=== PATIENT | male | born 1945 | race Hispanic/Latino ===

== ENCOUNTER → 2017-12-11 | Outpatient (CLI) | payer OTHER ==
[~2017-12-11] VITALS: Ht 177.8 cm; Wt 74.8 kg
[~2017-12-11] MED LIST: ALEN70TA47 PO; AREDS PO; ASPI-1197 PO; BUDE10.2 IH; BUDE10.22 IH; CALC-190 PO; CETI10TA57 PO; CLOP75TA14 PO; CYAN500 PO; FENO160 PO; FENO43CA5 PO; FINA5TAB41 PO; FISH1CAP63 PO; FLUT16H EN; FLUT16H NS; FLUTICASONE NASAL; FOLI-44 PO; GLIP10TA9 PO; INSLAN SQ; ISOS30TA6 PO; ISOSORBIDE PO; LEVO25TA54 PO; LORA10TA7 PO; MESA0.37 PO; METF-444 PO; METF-446 PO; METOPROLOL PO; MULTIVITAMIN PO; OMEP20CA10 PO; PEG15DRO4 OP; PRAV40TA3 PO; PRAV80TA21 PO; RANO500T2 PO; REGADENOSON 0.4 MG/5 ML PF SYG IVP SCH; TAMS0.4C32 PO; TIOT18CA3 IH; TIOT4MIS2 IH; TRAM50TA4 PO; UMEC1DIS IH; VITA1CAP85 PO; [UNRECOGNIZED DRUG - OTHER] OU; mesalamine PO
== END | disposition home or self-care (01) ==
LOC: SHCH 07:54
PROVIDERS: ATTEND Internal Medicine Cardiovascular Disease
DX: I25.709 Atherosclerosis of coronary artery bypass graft(s), unspecified, with unspecified angina pectoris (principal); J44.9 Chronic obstructive pulmonary disease, unspecified; E11.9 Type 2 diabetes mellitus without complications; Z79.899 Other long term (current) drug therapy
CPT/HCPCS: 78452; 93017; 96374; A9500 ×2; J2785

== ENCOUNTER 2017-12-21 13:02 | Observation (INO) | payer OTHER ==
[~2017-12-21] VITALS: Ht 177.8 cm; Wt 72.3 kg
[~2017-12-21 13:02] MED LIST changes: -AREDS PO; -BUDE10.2 IH; -CETI10TA57 PO; -CYAN500 PO; -FENO160 PO; -FISH1CAP63 PO; -FLUT16H EN; -FOLI-44 PO; -INSLAN SQ; -ISOS30TA6 PO; -MESA0.37 PO; -METF-444 PO; -PEG15DRO4 OP; -PRAV80TA21 PO; -RANO500T2 PO; -REGADENOSON 0.4 MG/5 ML PF SYG IVP SCH; -TIOT4MIS2 IH; -UMEC1DIS IH; -VITA1CAP85 PO; -[UNRECOGNIZED DRUG - OTHER] OU
[2017-12-21 13:56] LABS: BASOPHILS % (AUTO) 0.6 % (0.0-5.0); EOSINOPHILS % (AUTO) 1.1 % (0.0-8.0); HEMATOCRIT 37.3 % (42-54); LYMPHOCYTES % (AUTO) 13.6 % (21.0-51.0); MEAN CORPUSCULAR HEMOGLOBIN 31.9 pg (27.0-33.0); MEAN CORPUSCULAR HGB CONC 33.8 g/dL (32.0-36.0); MEAN CORPUSCULAR VOLUME 94.2 fL (79-99); MONOCYTES % (AUTO) 7.2 % (3.0-13.0); NEUTROPHILS % (AUTO) 77.5 % (40.0-77.0); PLATELET COUNT (AUTO) 165 K/uL (130-400); RED BLOOD CELL COUNT(AUTO) 3.96 MIL/uL (4.50-6.20); RED CELL DISTRIBUTION WIDTH 13.7 % (11.0-15.5); WHITE BLOOD COUNT (AUTO) 6.8 K/uL (4.8-10.8)
[2017-12-21 14:09] LABS: CREATININE 2.3 mg/dL (0.5-1.5); POTASSIUM 3.9 mmol/L (3.5-5.1)
[2017-12-21 14:13] LABS: ALBUMIN 3.8 g/dL (3.5-5.0); BILIRUBIN,TOTAL 0.4 mg/dL (0.2-1.0); TOTAL PROTEIN, SERUM 7.2 g/dL (6.0-8.3)
[2017-12-21 14:14] LABS: INR 1.03 (0.85-1.15); PARTIAL THROMBOPLASTIN TIME 25.7 SEC (26.3-35.5); PROTHROMBIN TIME 10.8 SEC (9.6-11.6)
[2017-12-21] MEDS ORDERED: INSULIN HUMULIN R 100 UNIT/ML 3ML ONE (14:42)
[2017-12-21 16:22] LABS: APPEARANCE,URINE Clear (CLEAR); BILIRUBIN,URINE Negative (NEGATIVE); COLOR,URINE Yellow (YELLOW); GLUCOSE, URINE (UA) 500 mg/dL (NEGATIVE); KETONES,URINE Negative (NEGATIVE); LEUKOCYTE ESTERASE ,URINE Negative (NEGATIVE); NITRATE,URINE Negative (NEGATIVE); OCCULT BLOOD,URINE Negative (NEGATIVE); PH,URINE 5.5 (5.0-8.0); PROTEIN,URINE Negative (NEGATIVE); UROBILINOGEN,URINE 0.2 mg/dL (0.2-1.0)
[2017-12-21] MEDS: PANTOPRAZOLE SODIUM 40 MG TABLET.DR PO SCH (16:26)
[2017-12-21] MEDS: ENOXAPARIN SODIUM 40 MG/0.4 ML SYRINGE SQ SCH (16:27)
[2017-12-21] MEDS ORDERED: LIDOCAINE HCL-MPF 1% 2ML VIAL IJ PRN (16:30)
[2017-12-21] MEDS ORDERED: ONDANSETRON HCL 4 MG/2 ML VIAL IVP PRN (16:30)
[2017-12-21] MEDS ORDERED: MORPHINE SULFATE 2 MG/ML 1ML SYG IVP PRN (16:30)
[2017-12-21] MEDS ORDERED: POTASSIUM CHLORIDE 20MEQ/100ML 100 ML IV PRN (16:30)
[2017-12-21] MEDS: SODIUM CHLORIDE 0.9% 1000ML 1,000 ML IV SCH (16:30)
[2017-12-21] MEDS ORDERED: HYDROCODONE/ACETAMINOPHEN 5/325 MG TAB PO PRN (16:30)
[2017-12-21] MEDS ORDERED: POTASSIUM CHLORIDE 10% ELIXIR 20 MEQ/15 ML UDCUP PO PRN (16:30)
[2017-12-21] MEDS ORDERED: ACETAMINOPHEN 325 MG TAB PO PRN (16:30)
[2017-12-21] MEDS ORDERED: POTASSIUM CHLORIDE 20 MEQ ERTAB PO PRN (16:30)
[2017-12-21 16:37] LABS: BACTERIA,URINE Rare /HPF (None Seen); RBC,URINE 0-1 /HPF (0-1); SQUAMOUS EPITHELIAL CELL,UR Rare /HPF (0-2); WBC,URINE 0-1 /HPF (0-1)
[2017-12-21] MEDS ORDERED: PANTOPRAZOLE SODIUM 40 MG TABLET.DR PO ONE (17:48)
[2017-12-21] MEDS ORDERED: SODIUM CHLORIDE 0.9% 1000ML 1,000 ML IV ONE (17:48)
[2017-12-21] MEDS ORDERED: ENOXAPARIN SODIUM 40 MG/0.4 ML SYRINGE SQ ONE (17:48)
[2017-12-21 19:41] VITALS: BP 123/74
[2017-12-21] MEDS: INSULIN R PO SS1 SQ SCH (20:50)
[2017-12-21] MEDS ORDERED: UMEC1DIS IH (23:04)
[2017-12-21] MEDS ORDERED: AREDS PO (23:04)
[2017-12-21 23:08] VITALS: BP 117/67
[2017-12-21] MEDS ORDERED: FENO160 PO (23:08)
[2017-12-21] MEDS ORDERED: CETI10TA57 PO (23:08)
[2017-12-21] MEDS ORDERED: ISOS30TA6 PO (23:14)
[2017-12-21] MEDS ORDERED: FLUT16H EN (23:14)
[2017-12-21] MEDS ORDERED: INSLAN SQ (23:16)
[2017-12-21] MEDS ORDERED: LEVO25TA54 PO (23:16)
[2017-12-21] MEDS ORDERED: MESA0.37 PO (23:21)
[2017-12-21] MEDS ORDERED: METF-444 PO (23:21)
[2017-12-21] MEDS ORDERED: RANO500T2 PO (23:25)
[2017-12-21] MEDS ORDERED: PRAV80TA21 PO (23:25)
[2017-12-21] MEDS ORDERED: BUDE10.2 IH (23:33)
[2017-12-21] MEDS ORDERED: TIOT4MIS2 IH (23:33)
[2017-12-21] MEDS ORDERED: TRAM50TA4 PO (23:36)
[2017-12-21] MEDS ORDERED: FISH1CAP63 PO (23:41)
[2017-12-21] MEDS ORDERED: FOLI-44 PO (23:41)
[2017-12-21] MEDS ORDERED: VITA1CAP85 PO (23:47)
[2017-12-21] MEDS ORDERED: PEG15DRO4 OP (23:47)
[2017-12-21] MEDS ORDERED: CYAN500 PO (23:47)
[2017-12-21] MEDS ORDERED: [UNRECOGNIZED DRUG - OTHER] OU (23:47)
[2017-12-22 03:19] VITALS: BP 119/72
[2017-12-22] MEDS: SODIUM CHLORIDE 0.9% 1000ML 1,000 ML IV SCH ×2 (05:53→08:31)
[2017-12-22] MEDS: INSULIN R PO SS1 SQ SCH ×3 (05:54→16:54)
[2017-12-22] MEDS: PANTOPRAZOLE SODIUM 40 MG TABLET.DR PO SCH (08:29)
[2017-12-22] MEDS: ENOXAPARIN SODIUM 40 MG/0.4 ML SYRINGE SQ SCH (08:30)
[2017-12-22 12:00] VITALS: BP 150/80
[2017-12-22 16:00] VITALS: BP 145/89
[2017-12-22 19:15] VITALS: BP 132/70
== END 2017-12-22 20:58 | disposition home or self-care (01) ==
LOC: EDH 13:02 → EDHIP 16:05 → 3CH 19:30
PROVIDERS: ADMIT Internal Medicine Critical Care Medicine; ATTEND Internal Medicine Critical Care Medicine
DX: E86.0 Dehydration (principal); I12.9 Hypertensive chronic kidney disease with stage 1 through stage 4 chronic kidney disease, or unspecified chronic kidney disease; N18.9 Chronic kidney disease, unspecified; G89.29 Other chronic pain; M54.9 Dorsalgia, unspecified; E11.22 Type 2 diabetes mellitus with diabetic chronic kidney disease; I25.10 Atherosclerotic heart disease of native coronary artery without angina pectoris; J44.9 Chronic obstructive pulmonary disease, unspecified; Z95.1 Presence of aortocoronary bypass graft
CPT/HCPCS: 36415 ×2; 80048; 80053; 81001; 82948 ×4; 84484; 85025; 85610; 85730; 93005; 96361; 96372 ×2; 96374; 96375; 99285; G0378 ×29; J1650 ×2; J1815 ×4; J2405; J7030 ×3

== ENCOUNTER 2018-08-29 23:33 | Emergency (ER) | payer OTHER ==
[~2018-08-29 23:33] MED LIST changes: -ALEN70TA47 PO; +AREDS PO; +BUDE10.2 IH; -BUDE10.22 IH; +CENTRUM CHEWAB1 EACH PO; +CETI10TA57 PO; +CYAN500 PO; +FENO160 PO; -FENO43CA5 PO; +FISH1CAP63 PO; +FLUT16H EN; -FLUT16H NS; -FLUTICASONE NASAL; -GLIP10TA9 PO; +INSLAN SQ; +ISOS30TA6 PO; -ISOSORBIDE PO; -LORA10TA7 PO; +MESA0.37 PO; +METF-444 PO; -METF-446 PO; -METOPROLOL PO; -MULTIVITAMIN PO; -OMEP20CA10 PO; +PEG15DRO4 OP; -PRAV40TA3 PO; +PRAV80TA21 PO; +RANO500T2 PO; -TIOT18CA3 IH; +TIOT4MIS2 IH; +UMEC1DIS IH; +VITA1CAP85 PO; +[UNRECOGNIZED DRUG - OTHER] OU; -mesalamine PO
[2018-08-30] MEDS ORDERED: SODIUM CHLORIDE 0.9% 500ML 500 ML IV ONE ×2 (00:13→01:19)
[2018-08-30 00:21] LABS: BASOPHILS % (AUTO) 0.3 % (0.0-5.0); EOSINOPHILS % (AUTO) 1.8 % (0.0-8.0); HEMATOCRIT 38.7 % (42-54); LYMPHOCYTES % (AUTO) 7.5 % (21.0-51.0); MEAN CORPUSCULAR HEMOGLOBIN 31.6 pg (27.0-33.0); MEAN CORPUSCULAR VOLUME 95.8 fL (79-99); MONOCYTES % (AUTO) 6.1 % (3.0-13.0); NEUTROPHILS % (AUTO) 84.3 % (40.0-77.0); PLATELET COUNT (AUTO) 161 K/uL (130-400); RED BLOOD CELL COUNT(AUTO) 4.03 MIL/uL (4.50-6.20); RED CELL DISTRIBUTION WIDTH 13.6 % (11.0-15.5)
[2018-08-30 00:23] LABS: APPEARANCE,URINE Clear (CLEAR); BILIRUBIN,URINE Negative (NEGATIVE); COLOR,URINE Yellow (YELLOW); GLUCOSE, URINE (UA) TRACE mg/dL (NEGATIVE); KETONES,URINE Negative (NEGATIVE); LEUKOCYTE ESTERASE ,URINE Negative (NEGATIVE); NITRATE,URINE Negative (NEGATIVE); OCCULT BLOOD,URINE Negative (NEGATIVE); PROTEIN,URINE Trace mg/dL (NEGATIVE)
[2018-08-30 00:34] LABS: BACTERIA,URINE None Seen /HPF (None Seen); POTASSIUM 3.7 mmol/L (3.5-5.1); RBC,URINE None Seen /HPF (0-1); SQUAMOUS EPITHELIAL CELL,UR Rare /HPF (0-2); WBC,URINE None Seen /HPF (0-1); YEAST,URINE BUDDING None Seen /HPF (None Seen)
[2018-08-30 00:38] LABS: BILIRUBIN,TOTAL 0.4 mg/dL (0.2-1.0); MAGNESIUM 2.6 mg/dL (1.80-2.40); TOTAL PROTEIN, SERUM 7.7 g/dL (6.0-8.3)
[2018-08-30 00:43] LABS: PARTIAL THROMBOPLASTIN TIME 27.7 SEC (26.3-35.5); PROTHROMBIN TIME 10.5 SEC (9.6-11.6)
[2018-08-30] MEDS ORDERED: SODIUM CHLORIDE 0.9% 1000ML 1,000 ML IV ONE (02:01)
[2018-08-30] MEDS ORDERED: LOPERAMIDE HCL 2 MG CAP PO ONE (03:09)
[2018-08-30] MEDS ORDERED: DICYCLOMINE HCL 20 MG TAB ONE (03:09)
== END 2018-08-30 03:20 | disposition home or self-care (01) ==
LOC: EDH 23:33
DX: E86.9 Volume depletion, unspecified (principal); R19.7 Diarrhea, unspecified; E11.9 Type 2 diabetes mellitus without complications; J44.9 Chronic obstructive pulmonary disease, unspecified; Z87.891 Personal history of nicotine dependence; Z88.8 Allergy status to other drugs, medicaments and biological substances; Z79.4 Long term (current) use of insulin
CPT/HCPCS: 36415; 80053; 81001; 82550; 83605; 83690; 83735; 85025; 85610; 85730; 87324; 87507; 96360; 96361; 99284; J7030; J7040 ×2

== ENCOUNTER → 2018-10-24 | Outpatient (CLI) | payer OTHER ==
[~2018-10-24] MED LIST changes: -CYAN500 PO; +CYAN500T4 PO; +REGADENOSON 0.4 MG/5 ML PF SYG IVP ONE
== END | disposition home or self-care (01) ==
LOC: SHCH 08:04
PROVIDERS: ATTEND Internal Medicine Cardiovascular Disease
DX: I25.89 Other forms of chronic ischemic heart disease (principal)
CPT/HCPCS: 78452; 93017; 96374; A9500 ×2; J2785

== ENCOUNTER 2018-12-06 14:15 | Inpatient (IN) | payer OTHER ==
[~2018-12-06] VITALS: Ht 180.3 cm; Wt 70.2 kg
[~2018-12-06 14:15] MED LIST changes: -CYAN500T4 PO; +CYAN500T63 PO; -REGADENOSON 0.4 MG/5 ML PF SYG IVP ONE
[2018-12-06 14:49] LABS: BASOPHILS % (AUTO) 0.5 % (0.0-5.0); EOSINOPHILS % (AUTO) 2.3 % (0.0-8.0); HEMATOCRIT 35.7 % (42-54); LYMPHOCYTES % (AUTO) 14.7 % (21.0-51.0); MEAN CORPUSCULAR HEMOGLOBIN 32.6 pg (27.0-33.0); MEAN CORPUSCULAR HGB CONC 33.8 g/dL (32.0-36.0); MEAN CORPUSCULAR VOLUME 96.5 fL (79-99); MONOCYTES % (AUTO) 8.6 % (3.0-13.0); NEUTROPHILS % (AUTO) 73.9 % (40.0-77.0); NUCLEATED RED BLOOD CELLS 0.1 % (0.0-0.19); PLATELET COUNT (AUTO) 163 K/uL (130-400); RED CELL DISTRIBUTION WIDTH 13.7 % (11.0-15.5); WHITE BLOOD COUNT (AUTO) 8.2 K/uL (4.8-10.8)
[2018-12-06 15:00] LABS: CREATININE 2.6 mg/dL (0.5-1.5)
[2018-12-06 15:05] LABS: ALBUMIN 3.8 g/dL (3.5-5.0); BILIRUBIN,TOTAL 0.3 mg/dL (0.2-1.0); TOTAL PROTEIN, SERUM 7.5 g/dL (6.0-8.3)
[2018-12-06] MEDS ORDERED: NITROGLYCERIN 1GM/1 INCH PACKET TD ONE (15:25)
[2018-12-06] MEDS ORDERED: SODIUM CHLORIDE 0.9% 1000ML 1,000 ML IV ONE (18:30)
[2018-12-06] MEDS ORDERED: METOPROLOL TARTRATE 25 MG TAB ONE (18:31)
[2018-12-06] MEDS ORDERED: HEPARIN SODIUM 5000UNIT/ML 1ML VIAL ONE (18:31)
[2018-12-06] MEDS ORDERED: ASPIRIN 81MG TAB.CHEW ONE (18:32)
[2018-12-06] MEDS ORDERED: ATORVASTATIN CALCIUM 40 MG TABLET ONE (20:43)
[2018-12-06 20:50] LABS: CREATINE KINASE, TOTAL 35 U/L (21-232); MYOGLOBIN 56 ng/mL (10-92); TROPONIN I < 0.04 ng/mL (0.00-0.06)
[2018-12-06 22:15] VITALS: BP 132/79
--- NOTE | 2018-12-06 22:54 | NUR ---
ADMIT PT ADMITTED TO ROOM 327, AAOX3. DENIES ANY PAINS AT THIS TIME. NOTED TO HAVE GBW. CLAIMS OF HAVING EPISODES SOB EVEN AT REST IN BED. ADMISSION CARE DONE. ADMISSION DATA BASE COMPLETED. PLACED PT ON O2 AT 2LPM VIA NC. TELE MONITOR APPLIED WITH RHYTHM AR REGULAR SINUS AND HR=70'S. ORIENTED TO ROOM AND UNIT. IN FOR MORE CARE AND MANAGEMENT. CALL LIGHT WITHIN REACH. Addendum: 12/06/18 at 2336 by MRAU NORWOOD RN RN Amended: Links added.
[2018-12-06] MEDS ORDERED: GLUCAGON 1MG KIT 1 MG ML IM PRN (23:45)
[2018-12-06] MEDS: SODIUM CHLORIDE 0.9% 1000ML 1,000 ML IV SCH (23:45)
[2018-12-06] MEDS ORDERED: DEXTROSE 50%-WATER 50 ML DISP.SYRIN IV PRN (23:45)
[2018-12-06] MEDS ORDERED: ONDANSETRON HCL 4 MG/2 ML VIAL IVP PRN (23:45)
[2018-12-06] MEDS ORDERED: NITROGLYCERIN 0.4 MG SL TAB SL PRN (23:45)
[2018-12-06] MEDS ORDERED: ACETAMINOPHEN 325 MG TAB PO PRN (23:45)
[2018-12-07] VITALS (7 sets, daily range): BP systolic 119–139; BP diastolic 68–79
[2018-12-07] MEDS ORDERED: FOLI1TAB85 PO (00:11)
[2018-12-07] MEDS ORDERED: MUPI22OI2 TP (00:11)
[2018-12-07] MEDS ORDERED: ALBU8.5H8 IH (00:11)
[2018-12-07] MEDS ORDERED: ALBU90AE IH (00:11)
[2018-12-07] MEDS ORDERED: FISH1CAP27 PO (00:11)
[2018-12-07] MEDS ORDERED: GLIP-162 PO (00:11)
[2018-12-07] MEDS ORDERED: ACET-66 PO (00:11)
[2018-12-07] MEDS ORDERED: DEXT1DRO12 OP (00:16)
--- NOTE | 2018-12-07 02:00 | NUR ---
ROUNDS PT RESTING WELL, NO DISTRESS NOTED. KEPT COMFORTABLE IN BED. CALL LIGHT WITHIN REACH. WILL MONITOR PT. SPOUSE AT BEDSIDE.
[2018-12-07 02:32] LABS: HEMATOCRIT 34.1 % (42-54); MEAN CORPUSCULAR HEMOGLOBIN 32.3 pg (27.0-33.0); MEAN CORPUSCULAR HGB CONC 33.5 g/dL (32.0-36.0); MEAN CORPUSCULAR VOLUME 96.4 fL (79-99); PLATELET COUNT (AUTO) 156 K/uL (130-400); RED BLOOD CELL COUNT(AUTO) 3.54 MIL/uL (4.50-6.20); RED CELL DISTRIBUTION WIDTH 13.8 % (11.0-15.5)
[2018-12-07 02:52] LABS: CARBON DIOXIDE 23 mmol/L (21-32); CHLORIDE 108 mmol/L (101-111); CREATINE KINASE, TOTAL 36 U/L (21-232); CREATININE 2.4 mg/dL (0.5-1.5); GLOMERULAR FILTR. RATE CALC 28 mL/min (>60); GLUCOSE,RANDOM 134 mg/dL (70-105); MYOGLOBIN 54 ng/mL (10-92); POTASSIUM 4.4 mmol/L (3.5-5.1); SODIUM SERUM 144 mmol/L (136-145); TROPONIN I < 0.04 ng/mL (0.00-0.06); UREA NITROGEN, BLOOD 41 mg/dL (7-18)
--- NOTE | 2018-12-07 05:30 | NUR ---
ROUNDS PT RESTING WELL, FAIRLY ASLEEP. NO DISTRESS NOTED. KEPT RESTED AND COMFORTABLE. CALL LIGHT WITHIN REACH. FOR MORE CARE.
[2018-12-07] MEDS: INSULIN HUMULIN R 100 UNIT/ML 3ML SQ SCH ×4 (05:44→21:44)
[2018-12-07] MEDS ORDERED: METOPROLOL TARTRATE 25 MG TAB PO SCH (09:00)
[2018-12-07] MEDS ORDERED: HEPARIN SODIUM 5000UNIT/ML 1ML VIAL SQ SCH (09:00)
[2018-12-07] MEDS ORDERED: ASPIRIN 81MG TAB.CHEW PO SCH (09:00)
[2018-12-07] MEDS: SODIUM CHLORIDE 0.9% 1000ML 1,000 ML IV SCH (18:15)
[2018-12-07] MEDS ORDERED: ATORVASTATIN CALCIUM 40 MG TABLET PO SCH (21:00)
[2018-12-07] MEDS: RANOLAZINE 500 MG TAB.SR.12H PO SCH (21:37)
[2018-12-07] MEDS: METOPROLOL TARTRATE 50 MG TAB PO SCH (21:37)
[2018-12-07] MEDS: ATORVASTATIN CALCIUM 20 MG TABLET PO SCH (21:37)
[2018-12-08 03:44] VITALS: BP 118/66
[2018-12-08] MEDS: INSULIN HUMULIN R 100 UNIT/ML 3ML SQ SCH ×4 (05:57→20:29)
[2018-12-08 08:00] VITALS: BP 132/77
[2018-12-08] MEDS ORDERED: ENOXAPARIN SODIUM 30 MG/0.3 ML SQ SCH (08:30)
[2018-12-08] MEDS: RANOLAZINE 500 MG TAB.SR.12H PO SCH ×2 (08:34→20:26)
[2018-12-08] MEDS: ASPIRIN 81MG TAB.CHEW PO SCH (08:35)
[2018-12-08] MEDS: ISOSORBIDE MONO 30MG TAB SR PO SCH (08:35)
[2018-12-08] MEDS: CLOPIDOGREL BISULFATE 75 MG TAB PO SCH (08:35)
[2018-12-08] MEDS: METOPROLOL TARTRATE 50 MG TAB PO SCH ×2 (08:35→20:26)
[2018-12-08] MEDS: GLIPIZIDE XL 5MG TAB PO SCH (08:36)
[2018-12-08] MEDS: FUROSEMIDE 20 MG TABLET PO SCH ×2 (08:46→17:50)
[2018-12-08] MEDS: 1/2 NORMAL SALINE 1,000 ML IV SCH (08:47)
[2018-12-08 12:00] VITALS: BP 110/68
[2018-12-08 16:00] VITALS: BP 127/71
--- NOTE | 2018-12-08 18:00 | NUR ---
INITIAL: Met with pt and spouse this afternoon to discuss dcp. Pt mentions that he lives w spouse and dtr. Prior to admission was independent w ambulation and ADLs. He does not own any DME. he was receiving meals on wheels. Per pt he feels safe and comfortable to return @ [facility]. to continue to follow and wait for md recommendations. Addendum: 12/08/18 at 1802 by ABNER JACKSON Amended: Links added.
[2018-12-08 19:49] VITALS: BP 143/78
[2018-12-08] MEDS: ATORVASTATIN CALCIUM 20 MG TABLET PO SCH (20:26)
--- NOTE | 2018-12-08 20:30 | NUR ---
MEDS SHIFT ASSESSMENT DONE, PLEASE REFER TO CHART. DUE MEDS ADMINISTERED,TOLERATED WELL. KEPT RESTED AND COMFORTABLE IN BED WITH HOB ELEVATED. CALL LIGHT WITHIN REACH. WILL MONITOR PT. Addendum: 12/08/18 at 2218 by MARU NORWOOD RN RN Amended: Links added.
[2018-12-08 23:45] VITALS: BP 118/67
[2018-12-09] VITALS (13 sets, daily range): BP systolic 100–149; BP diastolic 66–97
--- NOTE | 2018-12-09 02:00 | NUR ---
ROUNDS PT FAIRLY ASLEEP WITH RESPIRATIONS EVEN AND UNLABORED. NO NOTED DISTRESS. KEPT UNDISTURBED FOR NOW. WILL MONITOR PT. CALL LIGHT WITHIN REACH. SPOUSE AT BEDSIDE.
[2018-12-09] MEDS: 1/2 NORMAL SALINE 1,000 ML IV SCH (04:04)
--- NOTE | 2018-12-09 05:55 | NUR ---
ROUNDS PT ALREADY AWAKE. NO DISTRESS NOTED. NO CONCERNS VERBALIZED. EXHAUST MACHINE OPERATOR IN TO DRAW BLOOD. KEPT RESTED AND COMFORTABLE. FOR MORE CARE.
[2018-12-09] MEDS: INSULIN HUMULIN R 100 UNIT/ML 3ML SQ SCH ×4 (06:16→22:59)
[2018-12-09 06:28] LABS: HEMATOCRIT 37.3 % (42-54); MEAN CORPUSCULAR HEMOGLOBIN 32.1 pg (27.0-33.0); MEAN CORPUSCULAR HGB CONC 33.4 g/dL (32.0-36.0); MEAN CORPUSCULAR VOLUME 96.1 fL (79-99); PLATELET COUNT (AUTO) 184 K/uL (130-400); RED BLOOD CELL COUNT(AUTO) 3.88 MIL/uL (4.50-6.20); RED CELL DISTRIBUTION WIDTH 13.9 % (11.0-15.5); WHITE BLOOD COUNT (AUTO) 9.3 K/uL (4.8-10.8)
[2018-12-09 06:57] LABS: CREATININE 2.2 mg/dL (0.5-1.5)
[2018-12-09 07:38] LABS: B-TYPE NATRIURETIC PEPTIDE 113 pg/mL (0-100)
[2018-12-09] MEDS: GLIPIZIDE XL 5MG TAB PO SCH (08:00)
--- NOTE | 2018-12-09 08:10 | NUR ---
DR. FRANCO NOTIFIED RE; PLAN FOR TODAY STATES PT SHOULD HAVE HAD BEEN NPO, PLEASE SCHEDULE CORONARY ANGIO FOR TODAY. PT PREP. REMEDY DEVELOPER AWARE.
[2018-12-09] MEDS: ASPIRIN 81MG TAB.CHEW PO SCH (09:14)
[2018-12-09] MEDS: ISOSORBIDE MONO 30MG TAB SR PO SCH (09:16)
[2018-12-09] MEDS: METOPROLOL TARTRATE 50 MG TAB PO SCH ×2 (09:16→20:09)
[2018-12-09] MEDS: RANOLAZINE 500 MG TAB.SR.12H PO SCH ×2 (09:16→20:09)
[2018-12-09] MEDS: FUROSEMIDE 20 MG TABLET PO SCH ×2 (09:17→16:37)
[2018-12-09] MEDS: SODIUM CHLORIDE 0.9% 500ML 500 ML IV SCH ×2 (09:18→16:37)
[2018-12-09] MEDS: CLOPIDOGREL BISULFATE 75 MG TAB PO SCH (09:27)
--- NOTE | 2018-12-09 09:28 | NUR ---
Cathlab Okay to give plavix and all other meds except diabetes meds as per [facility]/cathlab protocol, Cathlab nurse.
[2018-12-09 10:06] LABS: INR 0.97 (0.85-1.15); PARTIAL THROMBOPLASTIN TIME 24.6 SEC (26.3-35.5); PROTHROMBIN TIME 10.2 SEC (9.6-11.6)
--- NOTE | 2018-12-09 12:30 | NUR ---
REPORT GIVEN TO PCU NURSE BENOIT.
[2018-12-09] MEDS ORDERED: IOHEXOL-350 75 ML VIAL IV ONE (13:05)
[2018-12-09] MEDS ORDERED: IOHEXOL 350 MG/ML 100ML INFUS..BTL IV ONE ×2 (13:05→13:42)
[2018-12-09] MEDS ORDERED: IOHEXOL-350 50ML VIAL IV ONE (13:05)
[2018-12-09] MEDS ORDERED: HEPARIN SODIUM 1000UNIT/ML 10ML VIAL ONE (13:05)
[2018-12-09] MEDS ORDERED: LIDOCAINE HCL 2% 20ML ONE (13:05)
[2018-12-09] MEDS ORDERED: NITROGLYCERIN 50 MG/D5% WATER 1 BOT IV PRN (14:45)
[2018-12-09] MEDS ORDERED: TEMAZEPAM 30 MG CAP PO PRN (14:45)
--- NOTE | 2018-12-09 15:00 | NUR ---
ARRIVAL TO FLOOR ROOM 201, S/P [facility]. AAOX4 DENIES CP DENIES SOB DENIES NV NO COMPLAINTS RESTING IN BED. RIGHT GROIN DRESSING CLEAN DRY AND INTACT. NO OOZING NO HEMATOMA NOTED. BEDREST IN PROGRESS. FAMILY IS AT BEDSIDE, CALL LIGHT WITHIN REACH, TELE PACK APPLIED TO PATIENT. HR VIA TELE SB 58.
[2018-12-09] MEDS ORDERED: ACETAMINOPHEN 325 MG TAB PO PRN (16:30)
--- NOTE | 2018-12-09 17:00 | NUR ---
RIGHT GROIN DRESSING GAUZE IS SATURATED WITH BLOOD RIGHT GROIN IS HOWEVER SOFT, NO BRUISING NOTED NO HEMATOMA FELT SURROUNDING. NOTIFIED DR WARREN. ORDERED TO CHANGE DRESSING AND HOLD PRESSURE [id number]. THIS WAS CARRIED OUT. HEMOSTASIS ACHIEVED. BEDREST REMAINS IN PROGRESS.
--- NOTE | 2018-12-09 19:30 | NUR ---
R groin assessment R groin soft, non tender. No hematoma. Dressing bloody. Pedal pulses palpable.
--- NOTE | 2018-12-09 20:00 | NUR ---
Dressing changed R groin oozing, dressing saturated. D-stat placed.Pedal pulses palpable
[2018-12-09] MEDS: ATORVASTATIN CALCIUM 20 MG TABLET PO SCH (20:09)
--- NOTE | 2018-12-09 21:00 | NUR ---
Dressing changed R groin checked. Dressing saturated. Oozing from site. Changed dressing. Pressure dressing in place. Pedal pulses palpable. Patient c/o of back pain. Informed patient tylenol due at 10 pm.
[2018-12-09] MEDS ORDERED: ACETYLCYSTEINE 10% 100MG/ML 4ML VIAL PO SCH (21:30)
--- NOTE | 2018-12-09 21:30 | NUR ---
Dr lundberg orders Per Lundberg order PO mucmyst now and daily
--- NOTE | 2018-12-09 22:30 | NUR ---
Patient received Tylenol for back pain R groin dressing cdi
--- NOTE | 2018-12-09 22:45 | NUR ---
Patient reports nausea and vomiting Patient's spouse comes out to nursing station to notify the ENGRAVER [employer]ICAL [employer]AMES patient is throwing up. Spouse asks for a emesis bag. [employer]RA[employer] hands patient family emesis bag. ENGRA[employer] notifies me the patient is vomiting. Once I am done assisting another patient with his needs I quickly go to med room and pull antiemetic. I walk into patient's room and ask the patient how he is feeling. He states he is nauseous. natasha says ," He was throwing up and nobody was here to help me. I had to do it all by myself." " didn't know what to do." I asked the patient what they did at home when they felt nauseous and began to vomit. I told them it was perfectly fine for him to vomit in the emesis bag. I explained to the patient and family member that it may be a side effect to anaesthesia from procedure early on in day. To give them peace of mind, I told them its nothing to be alarmed about. It can happen and if it does he has the emesis bag at bedside. I also let them know I was administering Zofran for the nausea and to let me know if he still felt nauseas after the Zofran to left me know. Patient and family membered nodded and verbally said okay. R diana checked. No oozing. Patient and
[2018-12-09] MEDS: ONDANSETRON HCL 4 MG/2 ML VIAL IVP PRN ×2 (22:56→23:01)
--- NOTE | 2018-12-09 23:00 | NUR ---
Patient standing outside of patient's room red and flushed wiping a wet towel on her face. I asked patient if she was okay since she was red and flushed. Patient stated " I don't like the way we were treated." Patient also stated, " I don't feel good myself and we aren't being treated right." "I am waiting for patient advocate to show up." I told the if she didn't feel well, I needed her to be seen in ED because I wouldn't be able to take care of both of her and her spouse. said, " I am not leaving, don't try to kick me out." She then walked into the room 201 where daughter and son in law were waiting. I followed behind into 201 and explained to her and family if she felt sick it's best she gets seen in Emergency Room because I didn't want something to happen to her while at bedside. stated, "Why don't you just take care of the patient." "He should be your concern not me." I let everyone in room know that both family and patient are my concern. Patient stated, "I you need to give it to us in writing that she () cannot be in here and that she needs to leave." I let everyone in room know she should be seen in ER if she felt sick if not then there is absolutely nothing wrong with her remaining at bedside if she didn't feel ill. Son in law then shouted at me while being a few inches away from my face, "She isn't sick, she looks like she is because of you!" " You are mistreating them!" "Stop trying to force her to leave." "You need to leave this room because you are stressing both of them out." I again attempted to educate everyone in the room about not only patient safety but 's safety as well. "Son in law raised his voice again," Stop trying to defend yourself and get out of the room." I wrote down patient advocate name and number on board. They called household appliance installer. community health nurse supervisor Sandee spoke to family. Nurse and aid were switched. From the 1929 to 2299, I was in patient's room checking on groin, Changed out dressing 3x. Addressed pain issue, addressed pump alarm 4x. Educated on bending of arm causing alarm. Gave patient heating packs for sore back. Adjusted pillow 2x for back relief. Administered antiemetic once notified of vomiting. Addressed every issue possible.
[2018-12-10] MEDS: 1/2 NORMAL SALINE 1,000 ML IV SCH (00:45)
--- NOTE | 2018-12-10 01:00 | NUR ---
RIGHT GROIN ASSESSMENT-SOFT AND NON TENDER. PRESSURE DRESSING IN PLACE. PT WAS NOTED TO HAVE INCREASED BLEEDING TO SITE. CURRENTLY PT HAS NO DRAINAGE TO SITE, NO PAIN STATED. WILL CONTINUE TO MONITOR.
[2018-12-10 03:51] VITALS: BP 131/77
[2018-12-10 03:55] LABS: HEMATOCRIT 37.5 % (42-54); MEAN CORPUSCULAR HEMOGLOBIN 32.2 pg (27.0-33.0); MEAN CORPUSCULAR HGB CONC 33.7 g/dL (32.0-36.0); MEAN CORPUSCULAR VOLUME 95.6 fL (79-99); PLATELET COUNT (AUTO) 190 K/uL (130-400); RED BLOOD CELL COUNT(AUTO) 3.92 MIL/uL (4.50-6.20); RED CELL DISTRIBUTION WIDTH 13.8 % (11.0-15.5); WHITE BLOOD COUNT (AUTO) 14.9 K/uL (4.8-10.8)
[2018-12-10] MEDS: SODIUM CHLORIDE 0.9% 500ML 500 ML IV SCH (04:08)
[2018-12-10 04:16] LABS: CREATININE 2.3 mg/dL (0.5-1.5)
[2018-12-10] MEDS: INSULIN HUMULIN R 100 UNIT/ML 3ML SQ SCH ×2 (05:43→11:34)
--- NOTE | 2018-12-10 07:15 | NUR ---
ASSESSMENT PT IS AAOX4 RESTING IN BED. DENIES CP DENIES SOB DENIES NV. RIGHT GROIN DRESSING IS CLEAN DRY AND INTACT. FAMILY IS AT BEDSIDE, CALL LIGHT WITHIN REACH.
[2018-12-10 07:30] VITALS: BP 146/77
[2018-12-10] MEDS: GLIPIZIDE XL 5MG TAB PO SCH (07:46)
[2018-12-10] MEDS: CLOPIDOGREL BISULFATE 75 MG TAB PO SCH (07:47)
[2018-12-10] MEDS: ISOSORBIDE MONO 30MG TAB SR PO SCH (07:47)
[2018-12-10] MEDS: RANOLAZINE 500 MG TAB.SR.12H PO SCH (07:47)
[2018-12-10] MEDS: METOPROLOL TARTRATE 50 MG TAB PO SCH (07:47)
[2018-12-10] MEDS: ASPIRIN 81MG TAB.CHEW PO SCH (07:47)
[2018-12-10] MEDS: FUROSEMIDE 20 MG TABLET PO SCH (07:48)
[2018-12-10] MEDS ORDERED: ASPIRIN 81MG TAB.CHEW PO SCH (09:00)
[2018-12-10] MEDS ORDERED: ACETYLCYSTEINE 10% 100MG/ML 4ML VIAL PO SCH (09:00)
[2018-12-10] MEDS ORDERED: PANTOPRAZOLE SODIUM 40 MG TABLET.DR PO SCH (09:00)
[2018-12-10] MEDS ORDERED: CLOPIDOGREL BISULFATE 75 MG TAB PO SCH (09:00)
--- NOTE | 2018-12-10 10:00 | NUR ---
ROUNDS DR MARTINES / NIURKA GRANADOS ROUNDED. OK TO DC HOME. PENDING DR GAONA TO ROUND
[2018-12-10 10:57] VITALS: BP 124/76
--- NOTE | 2018-12-10 11:00 | NUR ---
DR GAONA ROUNDED OK TO DC HOME, FOLLOW UP OUTPT IN CLINIC
--- NOTE | 2018-12-10 12:00 | NUR ---
AMBULATING IN HALLS DENIES PAIN NO COMPLAINTS. RIGHT GROIN REMAINS CLEAN DRY AND INTACT.
--- NOTE | 2018-12-10 13:00 | NUR ---
DC HOME PT AND SPOUSE VERBALIZE DC INSTRUCTIONS UNDERSTANDING, AGREE TO FOLLOW UP WITH MDS ORDERED AND HAVE BMP DRAWN 9-12 AT PRIMARY MD OFFICE. ALL QUESTIONS ANSWERED. PIV REMOVED CATH TIP INTACT, TELE PACK REMOVED. DOWN VIA WC WITH FAMILY AND NURSE AIDE.
== END 2018-12-10 13:27 | disposition home or self-care (01) | DRG 251 ==
LOC: EDH 14:15 → EDHIP 16:22 → OBSVTOIN 16:22 → 3DH 21:37 → 2AH 12-09 15:13
PROVIDERS: ADMIT Internal Medicine Critical Care Medicine; ATTEND Internal Medicine Critical Care Medicine
PROC: 4A023N7 Measurement of Cardiac Sampling and Pressure, Left Heart, Percutaneous Approach (ICD-10-PCS; principal; 2018-12-09)
PROC: 02703ZZ Dilation of Coronary Artery, One Artery, Percutaneous Approach (ICD-10-PCS; 2018-12-09)
PROC: B2131ZZ Fluoroscopy of Multiple Coronary Artery Bypass Grafts using Low Osmolar Contrast (ICD-10-PCS; 2018-12-09)
PROC: B2181ZZ Fluoroscopy of Left Internal Mammary Bypass Graft using Low Osmolar Contrast (ICD-10-PCS; 2018-12-09)
PROC: B2111ZZ Fluoroscopy of Multiple Coronary Arteries using Low Osmolar Contrast (ICD-10-PCS; 2018-12-09)
DX: T82.855A Stenosis of coronary artery stent, initial encounter (principal); I25.110 Atherosclerotic heart disease of native coronary artery with unstable angina pectoris; N18.4 Chronic kidney disease, stage 4 (severe); Y83.8 Other surgical procedures as the cause of abnormal reaction of the patient, or of later complication, without mention of misadventure at the time of the procedure; Y92.89 Other specified places as the place of occurrence of the external cause; E11.22 Type 2 diabetes mellitus with diabetic chronic kidney disease; I12.9 Hypertensive chronic kidney disease with stage 1 through stage 4 chronic kidney disease, or unspecified chronic kidney disease; E03.9 Hypothyroidism, unspecified; E11.51 Type 2 diabetes mellitus with diabetic peripheral angiopathy without gangrene; E78.5 Hyperlipidemia, unspecified; I25.2 Old myocardial infarction; I25.5 Ischemic cardiomyopathy; J44.9 Chronic obstructive pulmonary disease, unspecified; N40.0 Benign prostatic hyperplasia without lower urinary tract symptoms; Z79.02 Long term (current) use of antithrombotics/antiplatelets; Z79.4 Long term (current) use of insulin; Z79.51 Long term (current) use of inhaled steroids; Z79.82 Long term (current) use of aspirin; Z79.899 Other long term (current) drug therapy; Z87.891 Personal history of nicotine dependence; Z95.1 Presence of aortocoronary bypass graft; Z88.8 Allergy status to other drugs, medicaments and biological substances
CPT/HCPCS: 36415; 71046; 80048; 80053; 80061; 82550; 82948; 83874; 83880; 84484; 85025; 85027; 85610; 85730; 92920; 93005; 93306; 93455; C1725; C1760; C1769; C1894; G0378; J1644; J1650; J1815; J2405; J3490; J7030; J7040; J7608; Q9967

== ENCOUNTER 2019-12-27 18:56 | Observation (INO) | payer OTHER ==
[~2019-12-27] VITALS: Ht 177.8 cm; Wt 73.9 kg
[~2019-12-27 18:56] MED LIST changes: +ACET-66 PO; +ALBU8.5H8 IH; +ALBU90AE IH; -CALC-190 PO; -CENTRUM CHEWAB1 EACH PO; -CETI10TA57 PO; -CYAN500T63 PO; +DEXT1DRO12 OP; +FISH1CAP27 PO; -FISH1CAP63 PO; +FOLI1TAB85 PO; +GLIP-162 PO; -METF-444 PO; +MUPI22OI2 TP; -PEG15DRO4 OP; -TRAM50TA4 PO; -UMEC1DIS IH; -VITA1CAP85 PO; -[UNRECOGNIZED DRUG - OTHER] OU
[2019-12-27] MEDS ORDERED: ASPIRIN 325 MG TABLET ONE (19:07)
[2019-12-27 19:13] LABS: BASOPHILS % (AUTO) 0.4 % (0.0-5.0); EOSINOPHILS % (AUTO) 1.5 % (0.0-8.0); HEMATOCRIT 34.7 % (42-54); LYMPHOCYTES % (AUTO) 9.9 % (21.0-51.0); MEAN CORPUSCULAR HEMOGLOBIN 32.2 pg (27.0-33.0); MEAN CORPUSCULAR HGB CONC 33.1 g/dL (32.0-36.0); MEAN CORPUSCULAR VOLUME 97.2 fL (79-99); MONOCYTES % (AUTO) 7.4 % (3.0-13.0); NEUTROPHILS % (AUTO) 80.4 % (40.0-77.0); PLATELET COUNT (AUTO) 143 K/uL (130-400); RED BLOOD CELL COUNT(AUTO) 3.57 MIL/uL (4.50-6.20); RED CELL DISTRIBUTION WIDTH 12.9 % (11.0-15.5); WHITE BLOOD COUNT (AUTO) 10.1 K/uL (4.8-10.8)
[2019-12-27 19:21] LABS: CREATININE 3.5 mg/dL (0.5-1.5); POTASSIUM 3.7 mmol/L (3.5-5.1)
[2019-12-27 19:26] LABS: ALBUMIN 3.7 g/dL (3.5-5.0); BILIRUBIN,TOTAL 0.2 mg/dL (0.2-1.0); TOTAL PROTEIN, SERUM 7.3 g/dL (6.0-8.3)
[2019-12-27 19:27] LABS: INR 0.93 (0.85-1.15); PARTIAL THROMBOPLASTIN TIME 24.2 SEC (26.3-35.5); PROTHROMBIN TIME 10.1 SEC (9.6-11.6)
[2019-12-27] MEDS ORDERED: ENOXAPARIN SODIUM 40 MG/0.4 ML SYRINGE SQ ONE (23:54)
[2019-12-28] VITALS (7 sets, daily range): BP systolic 124–171; BP diastolic 77–90
--- NOTE | 2019-12-28 00:20 | NUR ---
Admission Assessment Received pt from ED per stretcher, awake, oriented x 3, DX: Chest Pain, but currently denies pain/discomfort. Routine admission assessment done, plan of care discuss, updated with all test results done in ED with all concern issues addressed. Pt claimed up to date with his flu & pneumonia vaccinations. Pt with his list of home medications, verified & recorded. Pt aware due for last CE by 0700, last EKG by 0300. Pt reminded to make sure to call for assistance when getting out of bed, stated he can manage by himself, agreed then to keep his door open at all times.
[2019-12-28] MEDS ORDERED: BUDE10.2 IH (06:02)
[2019-12-28] MEDS ORDERED: FOLI0.8T22 PO (06:02)
[2019-12-28] MEDS ORDERED: CALC-261 PO (06:02)
[2019-12-28] MEDS ORDERED: VIT500TA8 PO (06:02)
[2019-12-28] MEDS ORDERED: TAMS-1 PO (06:02)
[2019-12-28] MEDS ORDERED: INSLAN SQ (06:02)
[2019-12-28] MEDS ORDERED: RANO10003 PO (06:02)
[2019-12-28] MEDS ORDERED: SULF15DR26 OP (06:02)
[2019-12-28] MEDS ORDERED: BETA1TAB20 PO (06:02)
[2019-12-28] MEDS ORDERED: ICOS1CAP PO (06:02)
[2019-12-28] MEDS ORDERED: SUNFLOWER LECITHIN PO (06:02)
[2019-12-28] MEDS ORDERED: ACET-66 PO (06:02)
[2019-12-28] MEDS ORDERED: MESA800T9 PO (06:02)
[2019-12-28 07:25] LABS: HEMATOCRIT 34.6 % (42-54); MEAN CORPUSCULAR HEMOGLOBIN 31.7 pg (27.0-33.0); MEAN CORPUSCULAR HGB CONC 32.7 g/dL (32.0-36.0); MEAN CORPUSCULAR VOLUME 96.9 fL (79-99); RED BLOOD CELL COUNT(AUTO) 3.57 MIL/uL (4.50-6.20); RED CELL DISTRIBUTION WIDTH 12.8 % (11.0-15.5); WHITE BLOOD COUNT (AUTO) 9.3 K/uL (4.8-10.8)
[2019-12-28] MEDS ORDERED: INSULIN GLARGINE 100 UNITS/ML 10 ML VIAL SQ SCH (07:30)
[2019-12-28] MEDS ORDERED: GLIPIZIDE XL 5MG TAB PO SCH (08:00)
[2019-12-28 08:12] LABS: TROPONIN I 0.09 ng/mL (0.00-0.06)
[2019-12-28] MEDS: CALCIUM 600 + VITAMIN D 400 TABLET PO SCH (08:23)
[2019-12-28] MEDS: FAMOTIDINE 20MG TAB 20 MG TAB PO SCH (08:23)
[2019-12-28] MEDS: RANOLAZINE 500 MG TAB.SR.12H PO SCH ×2 (08:23→20:43)
[2019-12-28] MEDS: FISH OIL 1000 MG/CAP PO SCH ×2 (08:23→20:43)
[2019-12-28] MEDS: Vitamin B Complex/Vit C/Folic Acid PO SCH (08:23)
[2019-12-28] MEDS: CLOPIDOGREL BISULFATE 75 MG TAB PO SCH (08:24)
[2019-12-28] MEDS: ISOSORBIDE MONO 30MG TAB SR PO SCH (08:24)
[2019-12-28] MEDS: FLUTICASONE PROPIONATE 50MCG/SPRAY 16 GM BOTTLE EN SCH ×2 (08:25→20:44)
[2019-12-28 08:53] LABS: ALBUMIN 3.6 g/dL (3.5-5.0); BILIRUBIN,TOTAL 0.4 mg/dL (0.2-1.0); CREATININE 2.8 mg/dL (0.5-1.5); POTASSIUM 3.9 mmol/L (3.5-5.1); TOTAL PROTEIN, SERUM 7.2 g/dL (6.0-8.3)
[2019-12-28] MEDS ORDERED: SUNFLOWER LECITHIN PO SCH (09:00)
[2019-12-28] MEDS ORDERED: ASPIRIN 81MG TAB.CHEW PO SCH (09:00)
[2019-12-28] MEDS: TIOTROPIUM BROMIDE IH SCH (09:00)
[2019-12-28] MEDS: MESALAMINE 375 MG PO SCH ×4 (09:00→20:46)
[2019-12-28] MEDS ORDERED: ASCORBIC ACID 500 MG TAB PO SCH (09:00)
[2019-12-28] MEDS ORDERED: SULFACETAMIDE SODIUM 10% OP SCH (09:00)
[2019-12-28] MEDS ORDERED: Vitamin B Complex/Vit C/Folic Acid PO SCH (09:00)
[2019-12-28] MEDS ORDERED: ENOXAPARIN SODIUM 40 MG/0.4 ML SYRINGE SQ SCH (09:00)
[2019-12-28] MEDS: MULTIVITAMIN WITH MINERALS TABLET PO SCH (09:57)
[2019-12-28] MEDS: MAG HYDROX/AL HYDROX/SIMETH ES 30 ML SUSP UDCUP PO PRN (10:36)
[2019-12-28] MEDS ORDERED: HEPARIN SODIUM 5000UNIT/ML 1ML VIAL SQ PRN (12:15)
--- NOTE | 2019-12-28 12:30 | NUR ---
Patient was notified that family could be contacted in order to relay information about the patients treatment and day; patient refused and stated that he was updating family himself.
[2019-12-28 12:41] LABS: BASOPHILS % (AUTO) 0.3 % (0.0-5.0); EOSINOPHILS % (AUTO) 1.9 % (0.0-8.0); HEMATOCRIT 34.3 % (42-54); LYMPHOCYTES % (AUTO) 10.3 % (21.0-51.0); MEAN CORPUSCULAR HEMOGLOBIN 32.6 pg (27.0-33.0); MEAN CORPUSCULAR HGB CONC 33.2 g/dL (32.0-36.0); MONOCYTES % (AUTO) 8.6 % (3.0-13.0); NEUTROPHILS % (AUTO) 78.6 % (40.0-77.0); PLATELET COUNT (AUTO) 151 K/uL (130-400); WHITE BLOOD COUNT (AUTO) 8.9 K/uL (4.8-10.8)
[2019-12-28 12:56] LABS: INR 0.95 (0.85-1.15); PARTIAL THROMBOPLASTIN TIME 29.2 SEC (26.3-35.5); PROTHROMBIN TIME 10.3 SEC (9.6-11.6)
[2019-12-28] MEDS: HEPARIN 25000 UNITS/250 ML D5W 250 ML IV SCH (13:36)
[2019-12-28] MEDS ORDERED: HEPARIN SODIUM 5000UNIT/ML 1ML VIAL IV PRN (13:45)
[2019-12-28 15:47] LABS: TROPONIN I 0.04 ng/mL (0.00-0.06)
--- NOTE | 2019-12-28 16:19 | NUR ---
INITIAL: Met w pt this afternoon to discuss dcp. Pt mentions that he lives w his spouse and dtr Joann Melgoza. Prior to admission he was independent w ambulation and ADLs. Pt states that he has a cane if needed. His spouse provides transportation where needed. Pt states that he feels safe and comfortable to return home at [facility]. Addendum: 12/28/19 at 1652 by ABNER JACKSON CM Amended: Links added.
[2019-12-28] MEDS: INSULIN HUMULIN R 100 UNIT/ML 3ML SQ SCH ×2 (17:33→20:46)
--- NOTE | 2019-12-28 18:11 | NUR ---
Dr. Cotton was contacted and notified that he had a new consult in room 331, Brandi fischer for chronic kidney disease. Patient was stated on a heparin drip. Patient was giving a 5000 unit bolus dose of heparin, patient was then put on a 10804 unit drip of heparin.
[2019-12-28 20:12] LABS: INR 0.98 (0.85-1.15); PARTIAL THROMBOPLASTIN TIME 68.1 SEC (26.3-35.5); PROTHROMBIN TIME 10.6 SEC (9.6-11.6)
[2019-12-28] MEDS: FINASTERIDE 5 MG TABLET PO SCH (20:43)
[2019-12-28] MEDS: SIMVASTATIN 20 MG TABLET PO SCH (20:43)
[2019-12-28] MEDS: TAMSULOSIN HCL 0.4 MG CAP.ER.24H PO SCH (20:44)
[2019-12-28] MEDS ORDERED: ATORVASTATIN CALCIUM 40 MG TABLET PO SCH (21:00)
[2019-12-28 23:38] LABS: CREATINE KINASE, TOTAL 48 U/L (21-232); MYOGLOBIN 73 ng/mL (10-92); TROPONIN I < 0.04 ng/mL (0.00-0.06)
[2019-12-29] MEDS ORDERED: PHARMACY COMMUNICATION MISC SCH (00:30)
--- NOTE | 2019-12-29 02:03 | NUR ---
HEPARIN Pt cont on Heparin drip at 1300 unit/hr,PTT remains within therapeutic range.Refer to Heparin flowsheet.Pt kept Npo after midnight for LExiscan test this am.
[2019-12-29 02:14] LABS: BASOPHILS % (AUTO) 0.2 % (0.0-5.0); EOSINOPHILS % (AUTO) 2.3 % (0.0-8.0); HEMATOCRIT 35.2 % (42-54); LYMPHOCYTES % (AUTO) 12.5 % (21.0-51.0); MEAN CORPUSCULAR HEMOGLOBIN 31.3 pg (27.0-33.0); MEAN CORPUSCULAR HGB CONC 32.7 g/dL (32.0-36.0); MEAN CORPUSCULAR VOLUME 95.9 fL (79-99); MONOCYTES % (AUTO) 8.7 % (3.0-13.0); NEUTROPHILS % (AUTO) 75.7 % (40.0-77.0); PLATELET COUNT (AUTO) 164 K/uL (130-400); RED BLOOD CELL COUNT(AUTO) 3.67 MIL/uL (4.50-6.20)
[2019-12-29 02:24] LABS: PARTIAL THROMBOPLASTIN TIME 70.2 SEC (26.3-35.5); PROTHROMBIN TIME 10.8 SEC (9.6-11.6)
[2019-12-29 02:32] LABS: B-TYPE NATRIURETIC PEPTIDE 162 pg/mL (0-100)
[2019-12-29 04:19] VITALS: BP 117/74
[2019-12-29] MEDS ORDERED: COSYNTROPIN 0.25 MG VIAL IVP SCH (06:15)
[2019-12-29] MEDS: INSULIN HUMULIN R 100 UNIT/ML 3ML SQ SCH ×4 (06:16→20:17)
[2019-12-29] MEDS: INSULIN GLARGINE 100 UNITS/ML 10 ML VIAL SQ SCH (06:17)
[2019-12-29] MEDS: HEPARIN 25000 UNITS/250 ML D5W 250 ML IV SCH (07:30)
[2019-12-29 07:34] LABS: TROPONIN I 0.05 ng/mL (0.00-0.06)
[2019-12-29 08:02] VITALS: BP 127/77
[2019-12-29] MEDS: Vitamin B Complex/Vit C/Folic Acid PO SCH (09:00)
[2019-12-29] MEDS: FAMOTIDINE 20MG TAB 20 MG TAB PO SCH (09:00)
[2019-12-29] MEDS: CALCIUM 600 + VITAMIN D 400 TABLET PO SCH (09:00)
[2019-12-29] MEDS: MULTIVITAMIN WITH MINERALS TABLET PO SCH (09:00)
[2019-12-29] MEDS: SYMBICORT 160-4.5 MCG INHALER IH SCH (09:00)
[2019-12-29] MEDS: SULFACETAMIDE SODIUM 10% OP SCH (09:00)
[2019-12-29] MEDS: FISH OIL 1000 MG/CAP PO SCH ×2 (09:00→20:16)
[2019-12-29] MEDS: TIOTROPIUM BROMIDE IH SCH (09:00)
[2019-12-29] MEDS: ASPIRIN 325MG EC TAB 325 MG TABLET.DR PO SCH (09:00)
[2019-12-29] MEDS: MESALAMINE 375 MG PO SCH ×4 (09:00→20:16)
[2019-12-29] MEDS: ISOSORBIDE MONO 30MG TAB SR PO SCH (10:12)
[2019-12-29] MEDS: RANOLAZINE 500 MG TAB.SR.12H PO SCH ×2 (10:12→20:15)
[2019-12-29] MEDS: FLUTICASONE PROPIONATE 50MCG/SPRAY 16 GM BOTTLE EN SCH ×2 (10:13→20:16)
[2019-12-29 11:20] VITALS: BP 113/74
[2019-12-29] MEDS ORDERED: REGADENOSON 0.4 MG/5 ML PF SYG IVP SCH (13:00)
[2019-12-29] MEDS ORDERED: HEPARIN SODIUM 5000UNIT/ML 1ML VIAL ONE (16:25)
[2019-12-29 16:43] VITALS: BP 132/75
[2019-12-29] MEDS: CLOPIDOGREL BISULFATE 75 MG TAB PO SCH (16:48)
[2019-12-29] MEDS ORDERED: MESA4ENE4 RC (17:27)
[2019-12-29] MEDS ORDERED: MESA0.374 PO (17:30)
[2019-12-29 20:00] VITALS: BP 146/85
[2019-12-29] MEDS: SIMVASTATIN 20 MG TABLET PO SCH (20:15)
[2019-12-29] MEDS: FINASTERIDE 5 MG TABLET PO SCH (20:16)
[2019-12-29] MEDS: TAMSULOSIN HCL 0.4 MG CAP.ER.24H PO SCH (20:16)
--- NOTE | 2019-12-29 21:57 | NUR ---
PTT Ptt 60.7,no change on heparin drip.
[2019-12-29 23:28] VITALS: BP 122/75
[2019-12-30] MEDS: ACETAMINOPHEN EXTRA STRENGTH 500 MG TABLET PO PRN ×2 (00:42→08:42)
[2019-12-30] MEDS: HEPARIN 25000 UNITS/250 ML D5W 250 ML IV SCH (02:59)
[2019-12-30 03:34] LABS: ALBUMIN 3.4 g/dL (3.5-5.0); CREATININE 2.8 mg/dL (0.5-1.5); MAGNESIUM 2.2 mg/dL (1.80-2.40); PHOSPHORUS 4.5 mg/dL (2.5-4.9); POTASSIUM 4.5 mmol/L (3.5-5.1)
[2019-12-30 03:43] VITALS: BP 108/71
--- NOTE | 2019-12-30 03:47 | NUR ---
PTT Ptt 68.8.No Change in Heparin drip.
[2019-12-30] MEDS: INSULIN HUMULIN R 100 UNIT/ML 3ML SQ SCH ×2 (05:14→12:24)
[2019-12-30] MEDS: INSULIN GLARGINE 100 UNITS/ML 10 ML VIAL SQ SCH (06:16)
[2019-12-30 08:00] VITALS: BP 132/76
[2019-12-30] MEDS: TIOTROPIUM BROMIDE IH SCH (08:19)
[2019-12-30] MEDS: SYMBICORT 160-4.5 MCG INHALER IH SCH (08:19)
[2019-12-30] MEDS: SULFACETAMIDE SODIUM 10% OP SCH (08:19)
[2019-12-30] MEDS: MESALAMINE 375 MG PO SCH (08:20)
[2019-12-30] MEDS: ISOSORBIDE MONO 30MG TAB SR PO SCH (08:33)
[2019-12-30] MEDS: ASPIRIN 325MG EC TAB 325 MG TABLET.DR PO SCH (08:34)
[2019-12-30] MEDS: FISH OIL 1000 MG/CAP PO SCH (08:34)
[2019-12-30] MEDS: MULTIVITAMIN WITH MINERALS TABLET PO SCH (08:34)
[2019-12-30] MEDS: RANOLAZINE 500 MG TAB.SR.12H PO SCH (08:34)
[2019-12-30] MEDS: CLOPIDOGREL BISULFATE 75 MG TAB PO SCH (08:34)
[2019-12-30] MEDS: Vitamin B Complex/Vit C/Folic Acid PO SCH (08:34)
[2019-12-30] MEDS: FAMOTIDINE 20MG TAB 20 MG TAB PO SCH (08:34)
[2019-12-30] MEDS: CALCIUM 600 + VITAMIN D 400 TABLET PO SCH (08:34)
[2019-12-30] MEDS: FLUTICASONE PROPIONATE 50MCG/SPRAY 16 GM BOTTLE EN SCH (08:35)
[2019-12-30] MEDS ORDERED: MESALAMINE 0.375 GM PO SCH (09:00)
[2019-12-30 11:28] VITALS: BP 132/71
[2019-12-30] MEDS: MAG HYDROX/AL HYDROX/SIMETH ES 30 ML SUSP UDCUP PO PRN (12:31)
== END 2019-12-30 16:56 | disposition home or self-care (01) ==
LOC: EDH 18:56 → EDHIP 20:23 → INTOOBSV 20:23 → OBSVTOIN 20:23 → 3AH 23:49
PROVIDERS: ADMIT Internal Medicine Pulmonary Disease; ATTEND Internal Medicine Pulmonary Disease
DX: I21.4 Non-ST elevation (NSTEMI) myocardial infarction (principal); I25.110 Atherosclerotic heart disease of native coronary artery with unstable angina pectoris; I45.2 Bifascicular block; I12.9 Hypertensive chronic kidney disease with stage 1 through stage 4 chronic kidney disease, or unspecified chronic kidney disease; E11.22 Type 2 diabetes mellitus with diabetic chronic kidney disease; N18.4 Chronic kidney disease, stage 4 (severe); N17.9 Acute kidney failure, unspecified; E78.5 Hyperlipidemia, unspecified; E11.51 Type 2 diabetes mellitus with diabetic peripheral angiopathy without gangrene; I24.9 Acute ischemic heart disease, unspecified; K51.90 Ulcerative colitis, unspecified, without complications; N40.0 Benign prostatic hyperplasia without lower urinary tract symptoms; J44.9 Chronic obstructive pulmonary disease, unspecified; E03.9 Hypothyroidism, unspecified; Z95.1 Presence of aortocoronary bypass graft; Z87.891 Personal history of nicotine dependence; Z79.82 Long term (current) use of aspirin; Z79.4 Long term (current) use of insulin; Z79.899 Other long term (current) drug therapy; Z79.02 Long term (current) use of antithrombotics/antiplatelets; Z79.51 Long term (current) use of inhaled steroids; Z88.8 Allergy status to other drugs, medicaments and biological substances
CPT/HCPCS: 36415 ×4; 71045 ×2; 78452; 80053 ×2; 80069; 82550 ×5; 82948 ×10; 83735 ×2; 83874 ×4; 83880 ×2; 84484 ×6; 85025 ×3; 85027; 85610 ×4; 85730 ×8; 93005 ×2; 93017; 93306; 93356; 96365; 96366; 96372 ×3; 96376; 99285; A4510; A9500 ×2; G0378 ×5; J1644 ×6; J1650 ×2; J1815 ×3; J2785; 96374; J0834

== ENCOUNTER 2020-05-13 09:48 | Observation (INO) | payer OTHER ==
[~2020-05-13] VITALS: Ht 180.3 cm; Wt 71.7 kg
[~2020-05-13 09:48] MED LIST changes: -ALBU8.5H8 IH; -ALBU90AE IH; -AREDS PO; +BETA1TAB20 PO; +CALC-261 PO; -DEXT1DRO12 OP; -FENO160 PO; -FISH1CAP27 PO; +FOLI0.8T22 PO; +ICOS1CAP PO; -ISOS30TA6 PO; +ISOS30TA92 PO; -LEVO25TA54 PO; -MESA0.37 PO; +MESA0.374 PO; +MESA4ENE4 RC; -MUPI22OI2 TP; +RANO10003 PO; -RANO500T2 PO; +SULF15DR26 OP; +SUNFLOWER LECITHIN PO; +TAMS-1 PO; -TAMS0.4C32 PO; +VIT500TA8 PO
[2020-05-13] MEDS ORDERED: ASPIRIN 325 MG TABLET ONE (10:08)
[2020-05-13] MEDS ORDERED: NITROGLYCERIN 1GM OINT 1 INCH/1GM TD ONE (10:09)
[2020-05-13 10:23] LABS: BASOPHILS % (AUTO) 0.3 % (0.0-5.0); EOSINOPHILS % (AUTO) 1.6 % (0.0-8.0); HEMATOCRIT 34.4 % (42-54); MEAN CORPUSCULAR HEMOGLOBIN 30.9 pg (27.0-33.0); MEAN CORPUSCULAR HGB CONC 31.4 g/dL (32.0-36.0); MEAN CORPUSCULAR VOLUME 98.6 fL (79-99); MONOCYTES % (AUTO) 7.2 % (3.0-13.0); NEUTROPHILS % (AUTO) 79.5 % (40.0-77.0); PLATELET COUNT (AUTO) 167 K/uL (130-400); RED BLOOD CELL COUNT(AUTO) 3.49 MIL/uL (4.50-6.20); RED CELL DISTRIBUTION WIDTH 13.5 % (11.0-15.5); WHITE BLOOD COUNT (AUTO) 10.8 K/uL (4.8-10.8)
[2020-05-13 10:33] LABS: CREATININE 3.1 mg/dL (0.5-1.5); POTASSIUM 3.6 mmol/L (3.5-5.1)
[2020-05-13 10:38] LABS: ALBUMIN 3.8 g/dL (3.5-5.0); BILIRUBIN,TOTAL 0.4 mg/dL (0.2-1.0); TOTAL PROTEIN, SERUM 7.4 g/dL (6.0-8.3)
[2020-05-13 10:49] LABS: INR 1.05 (0.85-1.15); PROTHROMBIN TIME 11.4 SEC (9.6-11.6)
[2020-05-13 10:51] LABS: PARTIAL THROMBOPLASTIN TIME 26.7 SEC (26.3-35.5)
[2020-05-13] MEDS ORDERED: ALPRAZOLAM 0.25 MG TABLET ONE ×2 (12:44→18:15)
[2020-05-13] MEDS ORDERED: CLONIDINE HCL 0.1 MG TABLET PO PRN (18:00)
[2020-05-13] MEDS ORDERED: LACTULOSE 20 GM/30 ML UDCUP PO PRN (18:00)
[2020-05-13] MEDS ORDERED: ACETAMINOPHEN 650 MG SUPPOSITORY RC PRN (18:00)
[2020-05-13] MEDS ORDERED: ALPRAZOLAM 0.5 MG TABLET PO PRN (18:00)
[2020-05-13] MEDS ORDERED: TEMAZEPAM 15 MG CAPSULE PO PRN (18:00)
[2020-05-13] MEDS ORDERED: ACETAMINOPHEN 325 MG TAB PO PRN (18:00)
[2020-05-13] MEDS ORDERED: ONDANSETRON 4MG INJ IVP PRN (18:00)
[2020-05-13] MEDS ORDERED: ALPRAZOLAM 1 MG TAB ONE (18:13)
[2020-05-13] MEDS ORDERED: ALPRAZOLAM 0.25 MG TABLET PO PRN (18:15)
[2020-05-13 18:49] LABS: TROPONIN I 0.11 ng/mL (0.00-0.06)
[2020-05-13] MEDS ORDERED: INSULIN HUMULIN R 100 UNIT/ML 3ML ONE (20:59)
[2020-05-13] MEDS: INSULIN HUMULIN R 100 UNIT/ML 3ML SQ SCH ×2 (21:00)
[2020-05-13] MEDS ORDERED: NITROGLYCERIN 0.4 MG SL TAB SL ONE (21:20)
[2020-05-13 21:29] LABS: TROPONIN I 0.12 ng/mL (0.00-0.06)
[2020-05-13 21:55] VITALS: BP 132/86
[2020-05-13] MEDS ORDERED: MAGN400T53 PO (22:43)
[2020-05-13] MEDS ORDERED: BISA5TAB12 PO (22:43)
[2020-05-13] MEDS ORDERED: SOLU-MEDROL 125MG VIAL IVP SCH (22:45)
[2020-05-13] MEDS: NITROGLYCERIN 1GM OINT 1 INCH/1GM TD SCH (22:56)
[2020-05-14 00:03] VITALS: BP 145/89
[2020-05-14 00:15] LABS: TROPONIN I 0.17 ng/mL (0.00-0.06)
[2020-05-14] MEDS: IPRATROPIUM/ALBUTEROL SULFATE 3 ML SOLUTION IH SCH ×4 (00:17→18:31)
[2020-05-14] MEDS: NITROGLYCERIN 0.4 MG SL TAB SL PRN ×2 (00:46→08:05)
[2020-05-14] MEDS: MORPHINE 2 MG SYG IVP PRN ×2 (00:47→21:17)
[2020-05-14] MEDS ORDERED: LORAZEPAM 2 MG/ML 1 ML VIAL IVP ONE (01:15)
[2020-05-14] MEDS ORDERED: LORAZEPAM 2 MG/ML 1 ML VIAL ONE (01:41)
[2020-05-14] MEDS: NITROGLYCERIN 1GM OINT 1 INCH/1GM TD SCH ×2 (01:48→09:25)
[2020-05-14 03:17] VITALS: BP 124/77
[2020-05-14 04:38] LABS: BASOPHILS % (AUTO) 0.2 % (0.0-5.0); HEMATOCRIT 32.6 % (42-54); LYMPHOCYTES % (AUTO) 4.1 % (21.0-51.0); MEAN CORPUSCULAR HEMOGLOBIN 31.2 pg (27.0-33.0); MEAN CORPUSCULAR HGB CONC 31.6 g/dL (32.0-36.0); MEAN CORPUSCULAR VOLUME 98.8 fL (79-99); MONOCYTES % (AUTO) 1.6 % (3.0-13.0); NEUTROPHILS % (AUTO) 93.7 % (40.0-77.0); PLATELET COUNT (AUTO) 148 K/uL (130-400); RED CELL DISTRIBUTION WIDTH 13.5 % (11.0-15.5)
[2020-05-14 05:00] LABS: MAGNESIUM 2.2 mg/dL (1.80-2.40); PHOSPHORUS 3.7 mg/dL (2.5-4.9); POTASSIUM 4.3 mmol/L (3.5-5.1); TROPONIN I 0.17 ng/mL (0.00-0.06)
[2020-05-14] MEDS: INSULIN HUMULIN R 100 UNIT/ML 3ML SQ SCH ×8 (06:34→21:36)
[2020-05-14] MEDS: METOPROLOL TARTRATE 25 MG TAB PO SCH ×2 (08:05→21:15)
[2020-05-14] MEDS: ASPIRIN 81MG CHEW TAB PO SCH (08:05)
[2020-05-14] MEDS: SOLU-MEDROL 40MG VIAL IVP SCH ×2 (08:05→21:14)
[2020-05-14] MEDS: TRAMADOL HCL 50 MG TABLET PO PRN ×2 (08:30→12:18)
[2020-05-14] MEDS ORDERED: TAMSULOSIN HCL 0.4 MG CAP.ER.24H PO SCH (09:00)
[2020-05-14 09:13] VITALS: BP 143/91
[2020-05-14] MEDS: ENOXAPARIN SODIUM 30 MG/0.3 ML SQ SCH (09:27)
[2020-05-14] MEDS: FAMOTIDINE 20MG TAB PO SCH (09:55)
[2020-05-14 14:40] VITALS: BP 114/80
[2020-05-14] MEDS: ISOSORBIDE MONO 30MG SR TAB PO SCH ×2 (15:03→21:15)
[2020-05-14] MEDS: GUAIFENESIN-DM 200/20 MG 10 ML PO PRN ×2 (18:15→23:37)
[2020-05-14 18:17] VITALS: BP 113/74
[2020-05-14 19:10] VITALS: BP 129/83
[2020-05-14] MEDS ORDERED: ATORVASTATIN 20 MG TABLET PO SCH (21:00)
[2020-05-14] MEDS ORDERED: NON-FORMULARY MEDICATION 1 EACH (Ranolazine (Ranexa) 1,000 MG) PO SCH (21:00)
[2020-05-14] MEDS ORDERED: NON-FORMULARY MEDICATION 1 EACH (Pravastatin Sodium 80 MG) PO SCH (21:00)
[2020-05-14] MEDS: FLUTICASONE PROPIONATE 50MCG/SPRAY 16 GM BOTTLE EN SCH (21:14)
[2020-05-14] MEDS: RANOLAZINE 500 MG TAB.SR.12H PO SCH (21:15)
[2020-05-14] MEDS: TAMSULOSIN HCL 0.4 MG CAP.ER.24H PO SCH (21:15)
[2020-05-15 00:04] VITALS: BP 135/85
[2020-05-15] MEDS: IPRATROPIUM/ALBUTEROL SULFATE 3 ML SOLUTION IH SCH ×3 (00:27→11:24)
[2020-05-15 03:58] VITALS: BP 106/76
[2020-05-15 05:49] LABS: BASOPHILS % (AUTO) 0.1 % (0.0-5.0); HEMATOCRIT 30.1 % (42-54); MEAN CORPUSCULAR HEMOGLOBIN 31.1 pg (27.0-33.0); MEAN CORPUSCULAR HGB CONC 31.6 g/dL (32.0-36.0); MEAN CORPUSCULAR VOLUME 98.7 fL (79-99); MONOCYTES % (AUTO) 3.8 % (3.0-13.0); NEUTROPHILS % (AUTO) 92.6 % (40.0-77.0); PLATELET COUNT (AUTO) 142 K/uL (130-400); RED BLOOD CELL COUNT(AUTO) 3.05 MIL/uL (4.50-6.20); RED CELL DISTRIBUTION WIDTH 13.3 % (11.0-15.5); WHITE BLOOD COUNT (AUTO) 12.8 K/uL (4.8-10.8)
[2020-05-15] MEDS: INSULIN HUMULIN R 100 UNIT/ML 3ML SQ SCH ×6 (05:49→16:34)
[2020-05-15] MEDS: GUAIFENESIN-DM 200/20 MG 10 ML PO PRN (05:51)
[2020-05-15] MEDS: TRAMADOL HCL 50 MG TABLET PO PRN (05:51)
[2020-05-15 06:21] LABS: B-TYPE NATRIURETIC PEPTIDE 1320 pg/mL (0-100)
[2020-05-15 06:37] LABS: ALBUMIN 3.5 g/dL (3.5-5.0); BILIRUBIN,TOTAL 0.3 mg/dL (0.2-1.0); CREATININE 3.1 mg/dL (0.5-1.5); MAGNESIUM 2.4 mg/dL (1.80-2.40); POTASSIUM 4.8 mmol/L (3.5-5.1); TOTAL PROTEIN, SERUM 6.7 g/dL (6.0-8.3)
[2020-05-15 08:00] VITALS: BP 108/69
[2020-05-15] MEDS ORDERED: SYMBICORT 160-4.5 MCG INHALER IH SCH (09:00)
[2020-05-15] MEDS ORDERED: ISOSORBIDE MONO 30MG SR TAB PO SCH ×2 (09:00)
[2020-05-15] MEDS ORDERED: TIOTROPIUM BROMIDE IH SCH (09:00)
[2020-05-15] MEDS ORDERED: MAGNESIUM OXIDE 400 MG TABLET PO SCH (09:00)
[2020-05-15] MEDS ORDERED: Vitamin B Complex/Vit C/Folic Acid PO SCH (09:00)
[2020-05-15] MEDS ORDERED: CLOPIDOGREL 75MG TAB PO SCH (09:00)
[2020-05-15] MEDS ORDERED: BISACODYL 5 MG TABLET.DR PO SCH (09:00)
[2020-05-15] MEDS ORDERED: NON-FORMULARY MEDICATION 1 EACH (Folic Acid/Vitamin B Comp W-C (Rena-Vite Tablet) 0.8 MG) PO SCH (09:00)
[2020-05-15] MEDS ORDERED: FINASTERIDE 5 MG TABLET PO SCH (09:00)
[2020-05-15] MEDS ORDERED: ASPIRIN 81MG CHEW TAB PO SCH (09:00)
[2020-05-15] MEDS ORDERED: CARVEDILOL 12.5 MG TABLET PO SCH (09:00)
[2020-05-15] MEDS ORDERED: SULFACETAMIDE SODIUM 10% OP SCH (09:00)
[2020-05-15] MEDS: ASPIRIN 81MG CHEW TAB PO SCH (09:03)
[2020-05-15] MEDS: RANOLAZINE 500 MG TAB.SR.12H PO SCH (09:03)
[2020-05-15] MEDS: SOLU-MEDROL 40MG VIAL IVP SCH (09:04)
[2020-05-15] MEDS: TAMSULOSIN HCL 0.4 MG CAP.ER.24H PO SCH (09:04)
[2020-05-15] MEDS: ENOXAPARIN SODIUM 30 MG/0.3 ML SQ SCH (09:04)
[2020-05-15] MEDS: FLUTICASONE PROPIONATE 50MCG/SPRAY 16 GM BOTTLE EN SCH (09:05)
[2020-05-15] MEDS: FAMOTIDINE 20MG TAB PO SCH (09:05)
[2020-05-15] MEDS ORDERED: CARVEDILOL 6.25 MG TABLET PO SCH (09:15)
[2020-05-15 11:28] VITALS: BP 110/76
[2020-05-15] MEDS ORDERED: TRAMADOL HCL 50 MG TABLET PO PRN (12:30)
[2020-05-15] MEDS ORDERED: ISOS30TA92 PO (14:16)
[2020-05-15] MEDS ORDERED: LIDO1ADH90 TP (14:16)
[2020-05-15] MEDS ORDERED: CARV6.2579 PO (14:16)
[2020-05-15 16:00] VITALS: BP 129/83
== END 2020-05-15 16:49 | disposition home or self-care (01) ==
LOC: EDH 09:48 → EDHIP 17:51 → 4CH 21:25
PROVIDERS: ADMIT Internal Medicine; ATTEND Internal Medicine
DX: R07.89 Other chest pain (principal); Z20.822 Contact with and (suspected) exposure to COVID-19; I25.110 Atherosclerotic heart disease of native coronary artery with unstable angina pectoris; I12.9 Hypertensive chronic kidney disease with stage 1 through stage 4 chronic kidney disease, or unspecified chronic kidney disease; E11.22 Type 2 diabetes mellitus with diabetic chronic kidney disease; N18.4 Chronic kidney disease, stage 4 (severe); E78.5 Hyperlipidemia, unspecified; J44.9 Chronic obstructive pulmonary disease, unspecified; E03.9 Hypothyroidism, unspecified; F41.9 Anxiety disorder, unspecified; N40.0 Benign prostatic hyperplasia without lower urinary tract symptoms; R25.1 Tremor, unspecified; E11.51 Type 2 diabetes mellitus with diabetic peripheral angiopathy without gangrene; Z87.891 Personal history of nicotine dependence; Z95.1 Presence of aortocoronary bypass graft; Z95.5 Presence of coronary angioplasty implant and graft; Z79.02 Long term (current) use of antithrombotics/antiplatelets; Z79.4 Long term (current) use of insulin; Z79.51 Long term (current) use of inhaled steroids; Z79.82 Long term (current) use of aspirin; Z79.899 Other long term (current) drug therapy
CPT/HCPCS: 36415 ×3; 71045 ×2; 71250; 72128; 80048; 80053 ×2; 82550 ×5; 82948 ×10; 83735 ×2; 83874 ×4; 83880; 84100; 84145; 84443; 84484 ×5; 85025 ×3; 85378; 85610; 85730; 87426; 93005 ×3; 93970; 94640 ×7; 94664; 96372 ×2; 96374; 96375; 96376 ×2; 99285; G0378 ×44; J1650 ×2; J1815 ×7; J2060; J2920 ×3; J2930; U0003

== ENCOUNTER 2021-02-07 16:27 | Inpatient (IN) | payer OTHER ==
[~2021-02-07] VITALS: Ht 180.3 cm; Wt 68.0 kg
[~2021-02-07 16:27] MED LIST changes: +BISA5TAB12 PO; +CARV6.2579 PO; +LIDO1ADH90 TP; +MAGN400T53 PO
[2021-02-07 16:43] LABS: BASOPHILS % (AUTO) 0.2 % (0.0-5.0); HEMATOCRIT 30.4 % (42-54); LYMPHOCYTES % (AUTO) 4.7 % (21.0-51.0); MEAN CORPUSCULAR HEMOGLOBIN 31.8 pg (27.0-33.0); MEAN CORPUSCULAR HGB CONC 31.9 g/dL (32.0-36.0); MEAN CORPUSCULAR VOLUME 99.7 fL (79-99); NEUTROPHILS % (AUTO) 86.7 % (40.0-77.0); PLATELET COUNT (AUTO) 182 K/uL (130-400); RED BLOOD CELL COUNT(AUTO) 3.05 MIL/uL (4.50-6.20); RED CELL DISTRIBUTION WIDTH 15.4 % (11.0-15.5); WHITE BLOOD COUNT (AUTO) 10.1 K/uL (4.8-10.8)
[2021-02-07 16:59] LABS: BILIRUBIN,TOTAL 0.6 mg/dL (0.2-1.0); CREATININE 3.3 mg/dL (0.5-1.5)
[2021-02-07] MEDS ORDERED: NITROGLYCERIN 1GM OINT 1 INCH/1GM TD ONE (17:00)
[2021-02-07 17:06] LABS: B-TYPE NATRIURETIC PEPTIDE 3550 pg/mL (0-100)
[2021-02-07] MEDS ORDERED: KCL 20 MEQ ERTAB PO ONE (17:20)
[2021-02-07] MEDS ORDERED: POTASSIUM CHLORIDE 10% ELIXIR 20 MEQ/15 ML UDCUP PO ONE (17:30)
[2021-02-07] MEDS ORDERED: DEXTROSE 50%-WATER 50 ML DISP.SYRIN IV PRN (18:30)
[2021-02-07] MEDS ORDERED: HYDRALAZINE HCL 10 MG TABLET PO PRN (18:30)
[2021-02-07] MEDS ORDERED: GLUCAGON 1MG KIT 1 MG ML IM PRN (18:30)
[2021-02-07 20:46] LABS: INR 1.21 (0.85-1.15)
[2021-02-07 20:47] LABS: PARTIAL THROMBOPLASTIN TIME 31.1 SEC (26.3-35.5)
[2021-02-07] MEDS: INSULIN HUMULIN R 100 UNIT/ML 3ML SQ SCH (21:00)
[2021-02-07 21:08] LABS: APPEARANCE,URINE Clear (CLEAR); BILIRUBIN,URINE Negative (NEGATIVE); COLOR,URINE Yellow (YELLOW); GLUCOSE, URINE (UA) Negative (NEGATIVE); KETONES,URINE Negative (NEGATIVE); LEUKOCYTE ESTERASE ,URINE Trace (NEGATIVE); NITRATE,URINE Negative (NEGATIVE); OCCULT BLOOD,URINE Negative (NEGATIVE); PROTEIN,URINE Trace mg/dL (NEGATIVE); UROBILINOGEN,URINE 0.2 mg/dL (0.2-1.0)
[2021-02-07 21:16] LABS: BACTERIA,URINE Rare /HPF (None Seen); RBC,URINE 0-1 /HPF (0-1)
[2021-02-07 21:17] LABS: SQUAMOUS EPITHELIAL CELL,UR None Seen /HPF (0-2); URIC ACID CRYSTALS,URINE Rare /LPF (None Seen)
[2021-02-08] MEDS ORDERED: CARV6.25 PO (01:40)
[2021-02-08] MEDS ORDERED: ALPR0.25 PO (01:42)
[2021-02-08] MEDS ORDERED: ALPRAZOLAM 0.25 MG TABLET ONE (01:43)
[2021-02-08] MEDS ORDERED: SERT-438 PO (02:13)
[2021-02-08] MEDS ORDERED: FURO20TA4 PO (02:17)
[2021-02-08] MEDS ORDERED: ISOS30TA92 PO (02:18)
[2021-02-08] MEDS ORDERED: FLUT1BLS3 IH (02:19)
[2021-02-08] MEDS ORDERED: CARB-37 PO (02:20)
[2021-02-08] MEDS ORDERED: DOCU100T28 PO (02:20)
[2021-02-08] MEDS ORDERED: TIOT4MIS5 IH (02:21)
[2021-02-08] MEDS ORDERED: NITR0.4T50 SL (02:23)
[2021-02-08] MEDS ORDERED: FERR1TAB22 PO (02:24)
[2021-02-08] MEDS ORDERED: CYAN250014 PO (02:24)
[2021-02-08] MEDS ORDERED: PAPA1TAB10 PO (02:25)
[2021-02-08] MEDS ORDERED: FOLI0.4T6 PO (02:26)
[2021-02-08] MEDS ORDERED: AMAN100T PO (02:27)
[2021-02-08] MEDS ORDERED: LINA5TAB PO (02:29)
[2021-02-08] MEDS ORDERED: OMEP20TA25 PO (02:31)
[2021-02-08 06:47] LABS: HEMATOCRIT 31.9 % (42-54); MEAN CORPUSCULAR HEMOGLOBIN 32.2 pg (27.0-33.0); MEAN CORPUSCULAR HGB CONC 32.6 g/dL (32.0-36.0); MEAN CORPUSCULAR VOLUME 98.8 fL (79-99); RED BLOOD CELL COUNT(AUTO) 3.23 MIL/uL (4.50-6.20); RED CELL DISTRIBUTION WIDTH 15.5 % (11.0-15.5); WHITE BLOOD COUNT (AUTO) 10.5 K/uL (4.8-10.8)
[2021-02-08 06:54] LABS: HEMOGLOBIN A1C 6.6 % (4.0-6.0)
[2021-02-08 07:07] LABS: BILIRUBIN,TOTAL 0.8 mg/dL (0.2-1.0); CREATININE 3.2 mg/dL (0.5-1.5); POTASSIUM 3.4 mmol/L (3.5-5.1); THYROID STIMULATING HORMONE 3.11 uIU/mL (0.36-3.74); TOTAL PROTEIN, SERUM 6.8 g/dL (6.0-8.3)
[2021-02-08] MEDS: INSULIN HUMULIN R 100 UNIT/ML 3ML SQ SCH ×4 (07:30→21:00)
[2021-02-08] MEDS: ATORVASTATIN 20 MG TABLET PO SCH (07:54)
[2021-02-08] MEDS: ASPIRIN 81MG CHEW TAB PO SCH (07:54)
[2021-02-08] MEDS: FAMOTIDINE 20MG VIAL IV SCH (07:54)
[2021-02-08] MEDS ORDERED: ISOSORBIDE MONO 30MG SR TAB PO SCH (09:00)
[2021-02-08] MEDS ORDERED: ENOXAPARIN SODIUM 30 MG/0.3 ML SQ SCH (09:00)
[2021-02-08] MEDS: NITROGLYCERIN 0.4 MG SL TAB SL PRN ×2 (09:44→13:18)
[2021-02-08] MEDS ORDERED: POTASSIUM CHLORIDE 10% ELIXIR 20 MEQ/15 ML UDCUP PO PRN (10:00)
[2021-02-08] MEDS ORDERED: POTASSIUM CHLORIDE 20MEQ/100ML 100 ML IV PRN (10:00)
[2021-02-08] MEDS ORDERED: KCL 20 MEQ ERTAB PO PRN (10:00)
[2021-02-08] MEDS ORDERED: LIDOCAINE HCL-MPF 1% 2ML VIAL IV PRN (10:00)
[2021-02-08 15:00] VITALS: BP 115/78
[2021-02-08] MEDS: MORPHINE 2 MG SYG IVP PRN (15:04)
[2021-02-08] MEDS: FUROSEMIDE 40MG VIAL IV SCH (17:23)
[2021-02-08 19:43] VITALS: BP 114/82
[2021-02-08] MEDS: RANOLAZINE 500 MG TAB.SR.12H PO SCH (21:13)
[2021-02-08 23:37] VITALS: BP 123/75
[2021-02-09 03:39] VITALS: BP 116/79
[2021-02-09] MEDS: FUROSEMIDE 40MG VIAL IV SCH ×2 (04:12→15:20)
[2021-02-09 04:20] LABS: HEMATOCRIT 30.6 % (42-54); MEAN CORPUSCULAR HEMOGLOBIN 31.9 pg (27.0-33.0); MEAN CORPUSCULAR HGB CONC 32.4 g/dL (32.0-36.0); MEAN CORPUSCULAR VOLUME 98.7 fL (79-99); NUCLEATED RED BLOOD CELLS 0.2 % (0.0-0.19); RED BLOOD CELL COUNT(AUTO) 3.1 MIL/uL (4.50-6.20); RED CELL DISTRIBUTION WIDTH 15.5 % (11.0-15.5); WHITE BLOOD COUNT (AUTO) 11.6 K/uL (4.8-10.8)
[2021-02-09 04:39] LABS: CREATININE 3.7 mg/dL (0.5-1.5); MAGNESIUM 2.2 mg/dL (1.80-2.40); PHOSPHORUS 6.1 mg/dL (2.5-4.9); POTASSIUM 3.6 mmol/L (3.5-5.1)
[2021-02-09] MEDS: INSULIN HUMULIN R 100 UNIT/ML 3ML SQ SCH ×4 (07:30→21:00)
[2021-02-09 08:00] VITALS: BP 114/79
[2021-02-09] MEDS ORDERED: METOLAZONE 2.5 MG TABLET PO SCH (09:00)
[2021-02-09] MEDS ORDERED: ISOSORBIDE MONO 60MG SR TAB PO SCH (09:00)
[2021-02-09] MEDS: FAMOTIDINE 20MG VIAL IV SCH (09:40)
[2021-02-09] MEDS: ENOXAPARIN SODIUM 60 MG/0.6 ML SQ SCH (09:41)
[2021-02-09] MEDS: ASPIRIN 81MG CHEW TAB PO SCH (09:41)
[2021-02-09] MEDS: CLOPIDOGREL 75MG TAB PO SCH (09:42)
[2021-02-09] MEDS: ATORVASTATIN 20 MG TABLET PO SCH (09:42)
[2021-02-09] MEDS: RANOLAZINE 500 MG TAB.SR.12H PO SCH ×2 (09:42→21:18)
[2021-02-09] MEDS: METOPROLOL TARTRATE 25 MG TAB PO SCH ×2 (11:45→21:00)
[2021-02-09 12:05] VITALS: BP 110/74
[2021-02-09 16:01] VITALS: BP 95/61
[2021-02-09] MEDS: ALPRAZOLAM 0.25 MG TABLET PO PRN (21:19)
[2021-02-09] MEDS: BALSAM PERU/CASTOR OIL 60 GM TUBE TP SCH (21:22)
[2021-02-09 21:24] VITALS: BP 101/70
[2021-02-09 23:49] VITALS: BP 104/65
[2021-02-10 03:23] VITALS: BP 96/60
[2021-02-10] MEDS: FUROSEMIDE 40MG VIAL IV SCH (03:25)
[2021-02-10 04:50] LABS: HEMATOCRIT 31.2 % (42-54); MEAN CORPUSCULAR HEMOGLOBIN 32.2 pg (27.0-33.0); MEAN CORPUSCULAR HGB CONC 32.1 g/dL (32.0-36.0); MEAN CORPUSCULAR VOLUME 100.3 fL (79-99); NUCLEATED RED BLOOD CELLS 0.3 % (0.0-0.19); RED BLOOD CELL COUNT(AUTO) 3.11 MIL/uL (4.50-6.20); RED CELL DISTRIBUTION WIDTH 15.6 % (11.0-15.5); WHITE BLOOD COUNT (AUTO) 14.5 K/uL (4.8-10.8)
[2021-02-10 05:30] LABS: ALBUMIN 2.8 g/dL (3.5-5.0); BILIRUBIN,TOTAL 0.9 mg/dL (0.2-1.0); CREATININE 4.1 mg/dL (0.5-1.5); MAGNESIUM 2.3 mg/dL (1.80-2.40); PHOSPHORUS 7.3 mg/dL (2.5-4.9); POTASSIUM 3.8 mmol/L (3.5-5.1); TOTAL PROTEIN, SERUM 6.4 g/dL (6.0-8.3)
[2021-02-10] MEDS: INSULIN HUMULIN R 100 UNIT/ML 3ML SQ SCH ×4 (06:32→20:42)
[2021-02-10 08:00] VITALS: BP 109/66
[2021-02-10] MEDS: METOPROLOL TARTRATE 25 MG TAB PO SCH ×2 (09:00→20:52)
[2021-02-10] MEDS: FAMOTIDINE 20MG VIAL IV SCH (10:33)
[2021-02-10] MEDS: CLOPIDOGREL 75MG TAB PO SCH (10:33)
[2021-02-10] MEDS: ISOSORBIDE MONO 60MG SR TAB PO SCH (10:35)
[2021-02-10] MEDS: ENOXAPARIN SODIUM 60 MG/0.6 ML SQ SCH (10:48)
[2021-02-10] MEDS: ASPIRIN 81MG CHEW TAB PO SCH (10:48)
[2021-02-10] MEDS: BALSAM PERU/CASTOR OIL 60 GM TUBE TP SCH ×2 (10:48→20:51)
[2021-02-10] MEDS ORDERED: ZOSYN 3.375GM +NS 50ML IV SCH (11:00)
[2021-02-10 12:03] VITALS: BP 107/71
[2021-02-10] MEDS: ZOSYN 3.375GM+NS 50ML 50 ML IV SCH (12:24)
[2021-02-10] MEDS: MORPHINE 2 MG SYG IVP PRN (14:59)
[2021-02-10 16:00] VITALS: BP 139/67
[2021-02-10] MEDS: NITROGLYCERIN 0.4 MG SL TAB SL PRN ×2 (16:14→19:13)
[2021-02-10 20:31] VITALS: BP 117/63
[2021-02-10] MEDS: ALPRAZOLAM 0.25 MG TABLET PO PRN (20:50)
[2021-02-10 23:23] VITALS: BP 120/74
[2021-02-11] MEDS: ZOSYN 3.375GM+NS 50ML 50 ML IV SCH ×3 (00:49→21:38)
[2021-02-11] MEDS: MORPHINE 2 MG SYG IVP PRN ×2 (04:18→11:41)
[2021-02-11 04:19] VITALS: BP 109/58
[2021-02-11 04:43] LABS: HEMATOCRIT 30.5 % (42-54); MEAN CORPUSCULAR HEMOGLOBIN 31.3 pg (27.0-33.0); MEAN CORPUSCULAR HGB CONC 31.8 g/dL (32.0-36.0); MEAN CORPUSCULAR VOLUME 98.4 fL (79-99); NUCLEATED RED BLOOD CELLS 0.6 % (0.0-0.19); RED BLOOD CELL COUNT(AUTO) 3.1 MIL/uL (4.50-6.20); RED CELL DISTRIBUTION WIDTH 15.3 % (11.0-15.5); WHITE BLOOD COUNT (AUTO) 10.7 K/uL (4.8-10.8)
[2021-02-11 04:59] LABS: ALBUMIN 2.8 g/dL (3.5-5.0); CREATININE 4.2 mg/dL (0.5-1.5); MAGNESIUM 2.5 mg/dL (1.80-2.40); PHOSPHORUS 6.1 mg/dL (2.5-4.9); TOTAL PROTEIN, SERUM 6.3 g/dL (6.0-8.3)
[2021-02-11 05:09] LABS: POTASSIUM 2.9 mmol/L (3.5-5.1)
[2021-02-11] MEDS: INSULIN HUMULIN R 100 UNIT/ML 3ML SQ SCH ×4 (05:58→21:00)
[2021-02-11 08:00] VITALS: BP 105/61
[2021-02-11] MEDS: METOPROLOL TARTRATE 25 MG TAB PO SCH ×2 (08:28→21:30)
[2021-02-11] MEDS: ISOSORBIDE MONO 60MG SR TAB PO SCH (08:28)
[2021-02-11] MEDS: ASPIRIN 81MG CHEW TAB PO SCH (09:24)
[2021-02-11] MEDS: ENOXAPARIN SODIUM 60 MG/0.6 ML SQ SCH (09:24)
[2021-02-11] MEDS: CLOPIDOGREL 75MG TAB PO SCH (09:25)
[2021-02-11] MEDS: FAMOTIDINE 20MG VIAL IV SCH (09:25)
[2021-02-11] MEDS: BALSAM PERU/CASTOR OIL 60 GM TUBE TP SCH ×2 (09:27→21:33)
[2021-02-11 11:55] VITALS: BP 114/70
[2021-02-11] MEDS: KCL 20 MEQ ERTAB PO SCH (14:06)
[2021-02-11 16:00] VITALS: BP 108/72
[2021-02-11 20:47] VITALS: BP 111/74
[2021-02-11] MEDS: ALPRAZOLAM 0.25 MG TABLET PO PRN (21:33)
[2021-02-11 23:13] VITALS: BP 109/68
[2021-02-12 03:47] VITALS: BP 104/69
[2021-02-12 04:38] LABS: HEMATOCRIT 31.4 % (42-54); MEAN CORPUSCULAR HEMOGLOBIN 31.6 pg (27.0-33.0); MEAN CORPUSCULAR HGB CONC 31.8 g/dL (32.0-36.0); MEAN CORPUSCULAR VOLUME 99.4 fL (79-99); NUCLEATED RED BLOOD CELLS 0.2 % (0.0-0.19); RED BLOOD CELL COUNT(AUTO) 3.16 MIL/uL (4.50-6.20); RED CELL DISTRIBUTION WIDTH 15.5 % (11.0-15.5); WHITE BLOOD COUNT (AUTO) 9.5 K/uL (4.8-10.8)
[2021-02-12 05:02] LABS: ALBUMIN 2.7 g/dL (3.5-5.0); BILIRUBIN,TOTAL 1.1 mg/dL (0.2-1.0); CREATININE 4.6 mg/dL (0.5-1.5); MAGNESIUM 2.4 mg/dL (1.80-2.40); POTASSIUM 3.5 mmol/L (3.5-5.1); TOTAL PROTEIN, SERUM 6.5 g/dL (6.0-8.3)
[2021-02-12] MEDS: BISACODYL 10 MG SUPP.RECT RC PRN ×2 (06:39→16:50)
[2021-02-12] MEDS: INSULIN HUMULIN R 100 UNIT/ML 3ML SQ SCH ×4 (06:57→20:53)
[2021-02-12 08:00] VITALS: BP 108/68
[2021-02-12] MEDS: LEVODOPA PO SCH ×2 (09:00→14:00)
[2021-02-12] MEDS: ISOSORBIDE MONO 60MG SR TAB PO SCH (09:00)
[2021-02-12] MEDS: CARBIDOPA PO SCH ×2 (09:00→14:00)
[2021-02-12] MEDS: METOPROLOL TARTRATE 25 MG TAB PO SCH ×2 (09:00→20:53)
[2021-02-12] MEDS: ENOXAPARIN SODIUM 60 MG/0.6 ML SQ SCH (09:00)
[2021-02-12] MEDS: FAMOTIDINE 20MG VIAL IV SCH (09:42)
[2021-02-12] MEDS: CLOPIDOGREL 75MG TAB PO SCH (09:43)
[2021-02-12] MEDS: ASPIRIN 81MG CHEW TAB PO SCH (09:43)
[2021-02-12] MEDS: BALSAM PERU/CASTOR OIL 60 GM TUBE TP SCH ×2 (10:41→21:00)
[2021-02-12 12:00] VITALS: BP 120/75
[2021-02-12] MEDS: ZOSYN 3.375GM+NS 50ML 50 ML IV SCH ×2 (12:13→23:26)
[2021-02-12] MEDS: KCL 20 MEQ ERTAB PO SCH (12:14)
[2021-02-12] MEDS ORDERED: BENZOCAINE/MENTH/CETYLPYRD CL 1 EACH LOZENGE MM PRN (13:00)
[2021-02-12] MEDS ORDERED: ACETAMINOPHEN 325 MG TAB PO PRN (13:00)
[2021-02-12] MEDS ORDERED: FUROSEMIDE 20MG VIAL IV SCH (13:00)
[2021-02-12 16:00] VITALS: BP 113/73
[2021-02-12] MEDS: MORPHINE 2 MG SYG IVP PRN (16:35)
[2021-02-12 20:05] VITALS: BP 110/77
[2021-02-12 23:09] VITALS: BP 104/70
[2021-02-13 04:06] VITALS: BP 102/72
[2021-02-13 04:47] LABS: HEMATOCRIT 36.5 % (42-54); MEAN CORPUSCULAR HEMOGLOBIN 32.1 pg (27.0-33.0); MEAN CORPUSCULAR HGB CONC 32.1 g/dL (32.0-36.0); RED BLOOD CELL COUNT(AUTO) 3.65 MIL/uL (4.50-6.20); RED CELL DISTRIBUTION WIDTH 16.1 % (11.0-15.5); WHITE BLOOD COUNT (AUTO) 9.7 K/uL (4.8-10.8)
[2021-02-13 05:08] LABS: ALBUMIN 2.8 g/dL (3.5-5.0); BILIRUBIN,TOTAL 1.2 mg/dL (0.2-1.0); CREATININE 4.5 mg/dL (0.5-1.5); MAGNESIUM 2.5 mg/dL (1.80-2.40); PHOSPHORUS 5.2 mg/dL (2.5-4.9); POTASSIUM 3.9 mmol/L (3.5-5.1); TOTAL PROTEIN, SERUM 7.1 g/dL (6.0-8.3)
[2021-02-13] MEDS: INSULIN HUMULIN R 100 UNIT/ML 3ML SQ SCH ×4 (07:30→20:14)
[2021-02-13 08:00] VITALS: BP 108/77
[2021-02-13] MEDS: METOPROLOL TARTRATE 25 MG TAB PO SCH ×2 (09:00→20:04)
[2021-02-13] MEDS: ISOSORBIDE MONO 60MG SR TAB PO SCH (09:00)
[2021-02-13] MEDS: ASPIRIN 81MG CHEW TAB PO SCH (09:50)
[2021-02-13] MEDS: CLOPIDOGREL 75MG TAB PO SCH (09:51)
[2021-02-13] MEDS: FAMOTIDINE 20MG VIAL IV SCH (09:51)
[2021-02-13] MEDS: BALSAM PERU/CASTOR OIL 60 GM TUBE TP SCH ×2 (10:00→20:05)
[2021-02-13] MEDS: CARBIDOPA PO SCH ×3 (10:02→20:05)
[2021-02-13] MEDS: LEVODOPA PO SCH ×3 (10:02→20:05)
[2021-02-13] MEDS: ENOXAPARIN SODIUM 60 MG/0.6 ML SQ SCH (10:25)
[2021-02-13] MEDS: FUROSEMIDE 20MG VIAL IV SCH (10:31)
[2021-02-13] MEDS: ZOSYN 3.375GM+NS 50ML 50 ML IV SCH ×2 (11:49→20:04)
[2021-02-13 12:00] VITALS: BP 105/65
[2021-02-13] MEDS: KCL 20 MEQ ERTAB PO SCH (12:01)
[2021-02-13] MEDS: ALPRAZOLAM 0.25 MG TABLET PO PRN (15:29)
[2021-02-13] MEDS: MILRINONE-D5W 20 MG/100 ML 100 ML IV SCH (15:33)
[2021-02-13 16:00] VITALS: BP 113/78
[2021-02-13 20:33] VITALS: BP 116/73
[2021-02-13 23:43] VITALS: BP 118/69
[2021-02-14] MEDS: MILRINONE-D5W 20 MG/100 ML 100 ML IV SCH ×2 (03:40→17:08)
[2021-02-14 03:56] VITALS: BP 114/67
[2021-02-14 04:41] LABS: HEMATOCRIT 28.4 % (42-54); MEAN CORPUSCULAR HEMOGLOBIN 31.1 pg (27.0-33.0); MEAN CORPUSCULAR VOLUME 100.4 fL (79-99); RED BLOOD CELL COUNT(AUTO) 2.83 MIL/uL (4.50-6.20); RED CELL DISTRIBUTION WIDTH 16.5 % (11.0-15.5); WHITE BLOOD COUNT (AUTO) 4.6 K/uL (4.8-10.8)
[2021-02-14 04:56] LABS: CREATININE 4.5 mg/dL (0.5-1.5); POTASSIUM 3.7 mmol/L (3.5-5.1)
[2021-02-14] MEDS: INSULIN HUMULIN R 100 UNIT/ML 3ML SQ SCH ×4 (06:54→20:46)
[2021-02-14 07:41] VITALS: BP 103/60
[2021-02-14] MEDS: ASPIRIN 81MG CHEW TAB PO SCH (08:42)
[2021-02-14] MEDS: FAMOTIDINE 20MG TAB PO SCH (08:43)
[2021-02-14] MEDS: CLOPIDOGREL 75MG TAB PO SCH (08:43)
[2021-02-14] MEDS: LEVODOPA PO SCH ×3 (08:43→20:45)
[2021-02-14] MEDS: METOPROLOL TARTRATE 25 MG TAB PO SCH ×2 (08:43→20:45)
[2021-02-14] MEDS: ISOSORBIDE MONO 60MG SR TAB PO SCH (08:43)
[2021-02-14] MEDS: CARBIDOPA PO SCH ×3 (08:43→20:45)
[2021-02-14] MEDS: ENOXAPARIN SODIUM 60 MG/0.6 ML SQ SCH (08:51)
[2021-02-14] MEDS: ZOSYN 3.375GM+NS 50ML 50 ML IV SCH ×2 (08:51→20:45)
[2021-02-14] MEDS: BALSAM PERU/CASTOR OIL 60 GM TUBE TP SCH ×2 (08:51→20:46)
[2021-02-14] MEDS: KCL 20 MEQ ERTAB PO SCH (08:51)
[2021-02-14] MEDS: FUROSEMIDE 20MG VIAL IV SCH (09:00)
[2021-02-14 10:56] LABS: ALBUMIN 2.7 g/dL (3.5-5.0); BILIRUBIN,DIRECT 0.6 mg/dL (0.0-0.3); BILIRUBIN,TOTAL 1.4 mg/dL (0.2-1.0); TOTAL PROTEIN, SERUM 6.8 g/dL (6.0-8.3)
[2021-02-14 11:09] VITALS: BP 110/59
[2021-02-14 15:37] VITALS: BP 122/60
[2021-02-14 20:00] VITALS: BP 138/57
[2021-02-15] VITALS: BP 109/55
[2021-02-15 04:00] VITALS: BP_SYST 105; BP_SYST 130; BP_DIAS 49; BP_DIAS 50
[2021-02-15 05:25] LABS: BASOPHILS % (AUTO) 0.4 % (0.0-5.0); EOSINOPHILS % (AUTO) 3.1 % (0.0-8.0); HEMATOCRIT 32.4 % (42-54); LYMPHOCYTES % (AUTO) 9.2 % (21.0-51.0); MEAN CORPUSCULAR HEMOGLOBIN 31.7 pg (27.0-33.0); MEAN CORPUSCULAR HGB CONC 31.8 g/dL (32.0-36.0); MEAN CORPUSCULAR VOLUME 99.7 fL (79-99); MONOCYTES % (AUTO) 9.7 % (3.0-13.0); NEUTROPHILS % (AUTO) 77.1 % (40.0-77.0); PLATELET COUNT (AUTO) 112 K/uL (130-400); RED BLOOD CELL COUNT(AUTO) 3.25 MIL/uL (4.50-6.20); RED CELL DISTRIBUTION WIDTH 16.4 % (11.0-15.5); WHITE BLOOD COUNT (AUTO) 7.7 K/uL (4.8-10.8)
[2021-02-15 05:42] LABS: ALBUMIN 2.6 g/dL (3.5-5.0); BILIRUBIN,TOTAL 1.2 mg/dL (0.2-1.0); CREATININE 4.4 mg/dL (0.5-1.5); MAGNESIUM 2.2 mg/dL (1.80-2.40); PHOSPHORUS 4.9 mg/dL (2.5-4.9); POTASSIUM 3.5 mmol/L (3.5-5.1); TOTAL PROTEIN, SERUM 6.5 g/dL (6.0-8.3)
[2021-02-15] MEDS: INSULIN HUMULIN R 100 UNIT/ML 3ML SQ SCH ×2 (05:42→11:30)
[2021-02-15] MEDS: ZOSYN 3.375GM+NS 50ML 50 ML IV SCH (07:53)
[2021-02-15] MEDS: ENOXAPARIN SODIUM 60 MG/0.6 ML SQ SCH (07:56)
[2021-02-15] MEDS: FAMOTIDINE 20MG TAB PO SCH (07:57)
[2021-02-15] MEDS: CLOPIDOGREL 75MG TAB PO SCH (07:57)
[2021-02-15] MEDS: ASPIRIN 81MG CHEW TAB PO SCH (07:57)
[2021-02-15] MEDS: ISOSORBIDE MONO 60MG SR TAB PO SCH (07:57)
[2021-02-15] MEDS: METOPROLOL TARTRATE 25 MG TAB PO SCH (07:58)
[2021-02-15] MEDS: BALSAM PERU/CASTOR OIL 60 GM TUBE TP SCH (07:58)
[2021-02-15] MEDS: LEVODOPA PO SCH ×2 (08:00→13:25)
[2021-02-15] MEDS: CARBIDOPA PO SCH ×2 (08:00→13:25)
[2021-02-15 09:34] VITALS: BP 118/74
[2021-02-15] MEDS: KCL 20 MEQ ERTAB PO SCH (10:45)
[2021-02-15 13:05] VITALS: BP 117/75
== END 2021-02-15 17:00 | disposition hospice, home (50) | DRG 280 ==
LOC: EDH 16:27 → EDHIP 18:22 → OBSVTOIN 18:22 → 3BH 02-08 14:44 → 4DH 02-13 15:50
PROVIDERS: ADMIT Internal Medicine Critical Care Medicine; ATTEND Internal Medicine Critical Care Medicine
DX: I21.4 Non-ST elevation (NSTEMI) myocardial infarction (principal); I50.23 Acute on chronic systolic (congestive) heart failure; N17.0 Acute kidney failure with tubular necrosis; J15.6 Pneumonia due to other Gram-negative bacteria; I13.0 Hypertensive heart and chronic kidney disease with heart failure and stage 1 through stage 4 chronic kidney disease, or unspecified chronic kidney disease; N18.4 Chronic kidney disease, stage 4 (severe); J44.0 Chronic obstructive pulmonary disease with (acute) lower respiratory infection; E87.6 Hypokalemia; E78.5 Hyperlipidemia, unspecified; E11.22 Type 2 diabetes mellitus with diabetic chronic kidney disease; Z20.822 Contact with and (suspected) exposure to COVID-19; D63.8 Anemia in other chronic diseases classified elsewhere; I25.10 Atherosclerotic heart disease of native coronary artery without angina pectoris; F41.9 Anxiety disorder, unspecified; N40.0 Benign prostatic hyperplasia without lower urinary tract symptoms; E03.9 Hypothyroidism, unspecified; L89.152 Pressure ulcer of sacral region, stage 2; I44.0 Atrioventricular block, first degree; G20 Parkinson's disease; R29.6 Repeated falls; I48.0 Paroxysmal atrial fibrillation; I45.10 Unspecified right bundle-branch block; I25.5 Ischemic cardiomyopathy; K82.8 Other specified diseases of gallbladder; R79.89 Other specified abnormal findings of blood chemistry; R62.7 Adult failure to thrive; Z68.20 Body mass index [BMI] 20.0-20.9, adult; Z74.01 Bed confinement status; Z79.02 Long term (current) use of antithrombotics/antiplatelets; Z79.82 Long term (current) use of aspirin; Z79.899 Other long term (current) drug therapy; Z87.891 Personal history of nicotine dependence; Z95.1 Presence of aortocoronary bypass graft; Z95.5 Presence of coronary angioplasty implant and graft; Z88.8 Allergy status to other drugs, medicaments and biological substances; Z83.3 Family history of diabetes mellitus; Z82.49 Family history of ischemic heart disease and other diseases of the circulatory system; Z83.438 Family history of other disorder of lipoprotein metabolism and other lipidemia
CPT/HCPCS: 36415; 71045; 71250; 76700; 78226; 78582; 80048; 80053; 80076; 81001; 82140; 82550; 82948; 83036; 83735; 83880; 84100; 84132; 84145; 84443; 84484; 85025; 85027; 85378; 85610; 85730; 87040; 87088; 87635; 93005; 93306; 93356; 93970; 97039; 99291; A9537; A9540; A9558; G0378; J1650; J1815; J1940; J2260; J2543; J3480; J3490